=== PATIENT | male | born 1945 | race Caucasian/White ===

== ENCOUNTER 2016-06-05 04:40 | Observation (INO) ==
[2016-06-05] MEDS ORDERED: Aspirin 81 MG TAB.CHEW PO ONE (04:43)
[2016-06-05 05:12] LABS: Basophils # 0.1 K/mcL (0.0-0.2); Basophils % 0.9 %; Eosinophils # 0.4 K/mcL (0.0-0.6); Eosinophils % 4.7 %; Hematocrit 42.2 % (37.5-50.1); Hemoglobin 14.3 g/dL (12.9-16.9); Immature Granulocytes % 0.3 % (0-4); Lymphocytes # 2.9 K/mcL (0.6-4.6); Lymphocytes % 38.4 %; Mean Corpuscular HGB Conc 33.9 g/dL (31.6-35.5); Mean Corpuscular Hemoglobin 31.4 pg (28.0-33.3); Mean Corpuscular Volume 92.7 fL (83.0-100.0); Mean Platelet Volume 9.4 fL (9.4-12.4); Monocytes # 0.7 K/mcL (0.0-1.3); Monocytes % 9.8 %; Neutrophils # 3.4 K/mcL (1.6-8.9); Platelet Count 398 K/mcL (140-400); Red Blood Count 4.55 M/mcL (4.19-5.50); Segmented Neutrophils % 45.9 %
--- NOTE | 2016-06-05 05:16 | Emergency Department Note ---
Disposition Clinical Impression: Chest pain Qualifiers: Chest pain type: unspecified Qualified Code(s): R07.9 - Chest pain, unspecified Disposition: Admitted As Inpatient Condition: Good Time of Disposition: 07:36 Chest Pain HPI - General Chief Complaint: ED Chest Pain Stated Complaint: chest pain Time Seen by Provider: 06/05/16 04:43 Source: patient, family Mode of arrival: ambulatory Limitations: no limitations Vital Signs Reviewed: Yes Nursing Notes Reviewed: Yes - History of Present Illness HPI Narrative: Patient presents emergency room for evaluation chest pain. Symptoms then present for over one year. Had a catheterization performed several years ago with no blockages. Patient denies any trauma or injury. No recent illnesses. Patient is a history of blood clots in lower extremities secondary to orthopedic surgery as well as persistent sitting at work. Patient is otherwise healthy. Denies fevers chills nausea vomiting diarrhea. Denies chest pain shortness of breath and aggravated changes prior to the events today. His chest pain today came on acutely in nature. He typically will get intermittent chest discomfort that usually goes SPONTANEOUSLY WITH THIS ONE HAS BEEN PERSISTENT SINCE ITS PRESENTATION. DENIES ANY OTHER RECENT TRAUMA INJURIES OR SYMPTOMS Pt complaint: chest pain Onset (ago): week(s) Duration: intermittent Onset: during rest Pain Location: substernal, left chest Severity: mild Severity scale (1-10): 5 Quality: aching Pain Radiation: LUE Improves with: nothing Worsens with: inspiration, palpation, movement - Related Data Home Medications Medication Instructions Recorded Confirmed Aspirin Enteric Coated [Aspirin EC] 81 mg PO DAILY 11/12/14 06/05/16 Gabapentin [Neurontin] 300 mg PO TID 11/12/14 06/05/16 Multivitamin [Multi-Day Vitamins] 1 tab PO DAILY 11/12/14 06/05/16 Simvastatin [Zocor] 20 mg PO DAILY 11/12/14 06/05/16 Terazosin [Hytrin] 10 mg PO DAILY 11/12/14 06/05/16 Metformin [Glucophage] 500 mg PO DAILY 06/05/16 06/05/16 Rivaroxaban [Xarelto] 20 mg PO DAILY 06/05/16 06/05/16 Allergies Allergy/AdvReac Type Severity Reaction Status Date / Time No Known Allergies Allergy Verified 06/05/16 14:52 All systems ED: reviewed and negative except as stated. Constitutional: Denies: fever, chills Cardiovascular: Reports: chest pain. Denies: palpitations, dyspnea on exertion , orthopnea Respiratory: Denies: cough, dyspnea, wheezes Gastrointestinal: Reports: abdominal pain, nausea. Denies: vomiting, diarrhea Genitourinary: Denies: urgency, dysuria Musculoskeletal: Denies: back pain, neck pain Integumentary: Denies: rash Chest Pain PMH - Past Medical History Medical history: Reports: cancer, coronary artery disease, DVT, hyperlipidemia Surgical history: Reports: cancer surgery, orthopedic, other Psychiatric history: Reports: no psych history - Social History Smoking Status: Never smoker Alcohol use: Reports: rarely Drug use: Reports: none Physical Exam - General Limitations: no limitations General appearance: alert, in no apparent distress - Neck Neck exam: Present: normal inspection, full ROM, trachea midline - Chest Chest inspection: Present: normal inspection, symmetric chest wall rise. Absent : tenderness - Respiratory Respiratory exam: Present: normal lung sounds bilaterally. Absent: respiratory distress, wheezes, accessory muscle use - Cardiovascular Cardiovascular exam: Present: regular rate, normal rhythm, normal heart sounds - Abdominal Exam Abdominal exam: Present: soft, Non-Tender, normal bowel sounds. Absent: tenderness, distention, guarding, rebound, rigidity, Stewart's sign, Rovsing's sign, tenderness at McBurney's Point - Extremities Exam Extremities exam: Present: normal inspection, full ROM, normal capillary refill. Absent: tenderness - Back Exam Back exam: Present: normal inspection, full ROM. Absent: tenderness - Neurological Exam Neurological exam: Present: alert, oriented X3 - Psychiatric Psychiatric exam: Present: normal affect, normal mood Course Course Narrative: Patient seen and examined the time of arrival. See history of present illness. Well-appearing 71-year-old male presents emergency room for evaluation of what appears to be a chronic medical condition. Patient has had these symptoms on and off for just over a year. Symptoms progressed and started Pletal of his other episodes. The last several days she has been progressively worsening with pain. Denies fevers chills nausea vomiting diarrhea. Denies chest pain shortness of breath headache or vision changes prior to today's events. Main complaint on presentation appears left-sided chest wall pain that is worse with deep inspiration and palpation. Denies trauma or injuries or rashes. Physical exam patient is in no acute distress head is atraumatic. Pupils are reactive to light. His lungs were clear to auscultation bilaterally with no acute signs of murmur infectious etiology. Heart is regular. Abdomen is soft nontender nondistended with no guarding or rigidity. No CVA tenderness bilaterally. Patient is in with her nondistressed cranial nerve II through XII are grossly intact. Patient is concerning for cardiac related source considering his had a previous stress test performed 2012 catheterization. Patient describes the symptoms as being similar event. He denies any change in similar character at this point. He says that the symptoms do remind him of his previous cardiac evaluation. EKG shows normal sinus rhythm and no other acute issues. Patient is resting comfortably in the bed. Aspirin given at this time. 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 Patient otherwise has no other acute pathology on examination. Lungs are clear heart is regular abdomen soft. Disposition pending workup and treatment course - Reevaluation(s) Reevaluation #1: Symptoms are a little bit better after the nitroglycerin. Patient's blood pressure got into the 90 systolic range. Fluids were ordered at that time. Patient denies any change in mentation this point. Patient is concerning for cardiac related systems to symptoms. Patient's symptoms have not present for several days to weeks but then worse over the last several hours. Does have a history of DVT and is on Xarelto clinical suspicion for pulmonary emboli is low. Patient has anterior chest pain is reproducible on exam. No other acute visible signs of trauma or injury. We will discuss admission process and other further definitive imaging studies as needed. Patient is stable and resting comfortably in the bed no distress at this time. Disposition pending treatment course. Pain medication or this time Time: 06:14 Reevaluation #2: Low clinical suspicion for pulmonary emboli based on patient's uses a relative at home as well as no acute signs of respiratory distress or change in vital signs. Discussed my concern with this chest wall discomfort and pain. Patient also agrees it is concerning to him and he does not feel comfortable going home with she has been evaluated. Patient had negative troponin at this time. Symptoms of been worse over the last day to 24 hours. Patient will be admitted the hospital for cardiac evaluation and possible definitive evaluation and management. Hospitalist patient this point for admission process to be completed. Disposition pending admission process patient has had complete resolution of the symptoms with pain medication this time. Time: 06:45 Reevaluation #3: Patient discussed with the hospitalist Dr. Valle. We reviewed the patient's presentation symptoms of medical history. Patient afebrile hospital for cardiac evaluation. Discussed the atypical presentation of the chest wall pain with normal EKG and troponin. She understands and is comfortable with this plan. Patient will be brought in for definitive evaluation and management. Otherwise no other acute issues this time patient stable to to moderate in emergency room until admission process is completed Time: 07:36 Vital Signs Temperature 98.2 F 06/05/16 04:43 Pulse Rate 64 06/05/16 04:43 Respiratory Rate 18 06/05/16 04:43 Blood Pressure 112/69 06/05/16 04:43 O2 Sat by Pulse Oximetry 98 06/05/16 04:43 Temperature 97.8 F 06/05/16 18:51 Pulse Rate 86 06/05/16 18:51 Respiratory Rate 19 06/05/16 18:51 Blood Pressure 136/75 06/05/16 18:51 O2 Sat by Pulse Oximetry 92 06/05/16 18:51 Oxygen Delivery Oxygen Delivery Room Air Chest Pain - MDM Narrative Medical decision making narrative: Chest pain - Medical Records Medical records reviewed: Yes I reviewed the patient's medical records. - Lab Data Lab results reviewed: Yes I reviewed the patient's lab results. Result diagrams: 06/05/16 04:45 06/05/16 04:45 Lab Results 06/05/16 06/05/16 06/05/16 Range/Units 04:45 04:45 04:45 WBC 7.5 (4.3-11.1) K/mcL RBC 4.55 (4.19-5.50) M/mcL Hgb 14.3 (12.9-16.9) g/dL Hct 42.2 (37.5-50.1) % MCV 92.7 (83.0-100.0) fL MCH 31.4 (28.0-33.3) pg MCHC 33.9 (31.6-35.5) g/dL RDW 13.0 (11.5-14.5) % Plt Count 398 (140-400) K/mcL MPV 9.4 (9.4-12.4) fL Immature Gran % 0.3 (0-4) % Seg Neutrophils % 45.9 % Lymphocytes % 38.4 % Monocytes % 9.8 % Eosinophils % 4.7 % Basophils % 0.9 % Neutrophils # 3.4 (1.6-8.9) K/mcL Lymphocytes # 2.9 (0.6-4.6) K/mcL Monocytes # 0.7 (0.0-1.3) K/mcL Eosinophils # 0.4 (0.0-0.6) K/mcL Basophils # 0.1 (0.0-0.2) K/mcL PT 13.5 H (9.4-12.1) Seconds INR 1.2 APTT 36.1 H (26.0-36.0) Seconds Sodium (136-145) mEq/L Potassium (3.5-4.5) mEq/L Chloride (98-109) mEq/L Carbon Dioxide (19-29) mEq/L BUN (8-26) mg/dL Creatinine (0.72-1.25) mg/dL Est GFR ( Amer) (> 60) Est GFR (Non-Af Amer) (> 60) BUN/Creatinine Ratio (6-26) Glucose (70-99) mg/dL Calculated Osmolality (280-300) Calcium (8.6-10.8) mg/dL Troponin I (0-0.03) ng/mL B-Natriuretic Peptide 52 (0-100) pg/mL 06/05/16 06/05/16 Range/Units 04:45 04:45 WBC (4.3-11.1) K/mcL RBC (4.19-5.50) M/mcL Hgb (12.9-16.9) g/dL Hct (37.5-50.1) % MCV (83.0-100.0) fL MCH (28.0-33.3) pg MCHC (31.6-35.5) g/dL RDW (11.5-14.5) % Plt Count (140-400) K/mcL MPV (9.4-12.4) fL Immature Gran % (0-4) % Seg Neutrophils % % Lymphocytes % % Monocytes % % Eosinophils % % Basophils % % Neutrophils # (1.6-8.9) K/mcL Lymphocytes # (0.6-4.6) K/mcL Monocytes # (0.0-1.3) K/mcL Eosinophils # (0.0-0.6) K/mcL Basophils # (0.0-0.2) K/mcL PT (9.4-12.1) Seconds INR APTT (26.0-36.0) Seconds Sodium 142 (136-145) mEq/L Potassium 4.0 (3.5-4.5) mEq/L Chloride 107 (98-109) mEq/L Carbon Dioxide 26 (19-29) mEq/L BUN 19 (8-26) mg/dL Creatinine 1.05 (0.72-1.25) mg/dL Est GFR ( Amer) > 60 (> 60) Est GFR (Non-Af Amer) > 60 (> 60) BUN/Creatinine Ratio 18 (6-26) Glucose 121 H (70-99) mg/dL Calculated Osmolality 298 (280-300) Calcium 9.8 (8.6-10.8) mg/dL Troponin I 0.00 (0-0.03) ng/mL B-Natriuretic Peptide (0-100) pg/mL - Radiology Data Radiology results reviewed: Yes I reviewed the patient's radiology results. - EKG Data EKG attestation: Yes I reviewed and interpreted this EKG. EKG shows normal: sinus rhythm, axis, intervals, QRS complexes, ST-T waves Rate: normal Rhythm: NSR Bradshaw/QRS: normal When compared to previous EKG there are: no significant changes Interpretation: no acute changes, unchanged when compared to prior tracing (date ) Heart Score - Score History: Moderately Suspicious EKG: Non Specific repolarisation Disturbance Age: Greater than 65 Risk Factors: 1-2 risk factors Troponin: Less than normal limit HEART Score Total: 5 Attestation Statement - Attestation Attestation: I, Can Hutton MD, personally performed a history and physical exam of the patient and discussed their management with the resident. I reviewed the resident's note and agree with the documented findings, medical decision making , and plan of care. 71-year-old male presents to the emergency department complaining of some left upper chest pain. He states he has had this pain off and on for more than a year. He had a heart catheter about a year ago. The pain sometimes radiates up into the left side of the neck. Some mild shortness of breath with the pain. No diaphoresis. No palpitations. On examination patient is a well-developed well-nourished well-appearing elderly male in no acute distress. He is alert and oriented 3. There is no cyanosis or diaphoresis. Chest is nontender to palpation. Breath sounds are clear and equal bilaterally. Heart regular rate and rhythm. Abdomen soft and nontender with normal bowel sounds. No pedal edema. No gross focal neurological deficits. No acute changes on EKG. Chest x-ray negative. Labs reviewed. The hospitalist, Dr. Valle, was consulted and accepted admission of the patient.
[2016-06-05 05:17] LABS: INR 1.2; Prothrombin Time 13.5 Seconds (9.4-12.1)
[2016-06-05 05:20] LABS: Activated Partial Thrombo Time 36.1 Seconds (26.0-36.0)
[2016-06-05] MEDS ORDERED: Nitroglycerin 0.4 MG TAB.SUBL SL PRN (05:20)
[2016-06-05 05:26] LABS: BUN/Creatinine Ratio 18 (6-26); Blood Urea Nitrogen 19 mg/dL (8-26); Calcium 9.8 mg/dL (8.6-10.8); Carbon Dioxide 26 mEq/L (19-29); Chloride 107 mEq/L (98-109); Glucose 121 mg/dL (70-99); Osmolality,Calculated 298 (280-300); Sodium 142 mEq/L (136-145); eGFR For African Americans > 60 (> 60); eGFR For Non-African Americans > 60 (> 60)
[2016-06-05] MEDS ORDERED: 0.9 % Sodium Chloride 1,000 ML ONE (05:55)
[2016-06-05] MEDS ORDERED: 0.9 % Sodium Chloride 1,000 ML IVC ONE (06:08)
[2016-06-05] MEDS ORDERED: Ondansetron 4 MG/2 ML VIAL IVP ONE (06:13)
[2016-06-05] MEDS ORDERED: *HR* Morphine 2 MG/ML SYRINGE IVP ONE (06:13)
--- NOTE | 2016-06-05 09:41 | Internal Med History&Physical ---
Date of Encounter: 06/06/16 Time of Encounter: 09:40 Assessment and Plan (1) Chest pain Status: Chronic Unclear etiology. Has on and off chest pain since last year, has been evaluated by Dr. Johns, stress test last year was negative for ischemia. LHC done in 2011 with no significant heart blockage. We will trend troponins 3, first troponin is negative, EKG shows no ischemic changes. Unclear if this is coming from the heart, may need to workup for other causes once ACS is ruled out. Qualifiers: Chest pain type: unspecified Qualified Code(s): R07.9 - Chest pain, unspecified (2) Diabetes Status: Chronic Qualifiers: Diabetes mellitus type: type 2 Diabetes mellitus complication status: without complication Diabetes mellitus longterm insulin use: without jig operator use Qualified Code(s): E11.9 - Type 2 diabetes mellitus without complications (3) Hyperlipidemia Status: Chronic Qualifiers: Hyperlipidemia type: unspecified Qualified Code(s): E78.5 - Hyperlipidemia , unspecified (4) Hypertension Status: Chronic Qualifiers: Hypertension type: essential hypertension Qualified Code(s): I10 - Essential (primary) hypertension (5) DVT (deep venous thrombosis) Status: Chronic he has recurrent DVT of rt. leg and has family h/o DVT. factr V leiden is negative will continue his xarelto, seen by oncology, he may need to take it for lifetime. Qualifiers: DVT location: lower extremity Affected thrombotic vein of extremity: popliteal Laterality: right Chronicity: chronic Qualified Code(s): I82.531 - Chronic embolism and thrombosis of right popliteal vein Internal Medicine - H&P: HPI Chief complaint: chest pain Admitted From: Home Plans for Post Hospital Care: Home History of present illness: Mr. Ramsey is a 71 year old male with medical history of DM, HTN and knee replacement surgery August 2014, DVT presneted with Symptoms of chest pain present for over one year. Had a catheterization performed [address] Johns which showed no severe blockages and did not require any stent placement. Patient was also evaluated last year for the same thing, had stress test done that was negative for ischemia. Patient reports that he has this midsternal left-sided chest pain on and off since last year. It is not exertional, there is no relieving or exacerbating factor. This time he says he started having this midsternal chest pain since last night which is worse than before. He was given nitroglycerin in the emergency room which he says helped somewhat. He reports his mild nausea but no vomiting. Denies any shortness of breath, cough or fever, no abdominal pain. Patient denies any trauma or injury. No recent illnesses. Patient is a history of blood clots in lower extremities secondary to orthopedic surgery as well as persistent sitting at work. Patient is otherwise healthy. His chest pain today came on acutely in nature. He typically will get intermittent chest discomfort that usually goes SPONTANEOUSLY WITH THIS ONE HAS BEEN PERSISTENT SINCE ITS PRESENTATION. DENIES ANY OTHER RECENT TRAUMA INJURIES OR SYMPTOMS Past Med Surg Social Fam HX - Past Medical History Medical history: cancer, coronary artery disease, DVT, hyperlipidemia Psychiatric history: no psych history - Past Surgical History Surgical History: cancer surgery, orthopedic, other - Social History Smoking Status: Never smoker Smokeless Tobacco Status: No Alcohol use: none Drug use: none - Family History Mother Living Status: Hx Family Cardiac Disorders: Yes (heart failure, DVT) Hx Family Endocrine Disorder: Yes (DM) Internal Medicine - H&P: Meds Aspirin Enteric Coated [Aspirin EC] 81 mg PO DAILY 11/12/14 [History] Gabapentin [Neurontin] 300 mg PO TID 11/12/14 [History] Multivitamin [Multi-Day Vitamins] 1 tab PO DAILY 11/12/14 [History] Simvastatin [Zocor] 20 mg PO DAILY 11/12/14 [History] Terazosin [Hytrin] 10 mg PO DAILY 11/12/14 [History] Metformin [Glucophage] 500 mg PO DAILY 06/05/16 [History] Rivaroxaban [Xarelto] 20 mg PO DAILY 06/05/16 [History] Omeprazole [PriLOSEC] 20 mg PO DAILY #30 capsule. 06/06/16 [Rx] Rivaroxaban [Xarelto] 20 mg PO 1700 tablet 06/06/16 [Rx] Allergies No Known Allergies Allergy (Verified 06/05/16 14:52) All Systems PM: A 10-system review of systems was performed and is negative for pertinent findings except as documented above in the HPI. - Constitutional Vitals: Temp Pulse Resp BP Pulse Ox 97.7 F 64 16 149/80 96 06/05/16 08:40 06/05/16 08:40 06/05/16 08:40 06/05/16 08:40 06/05/16 08:57 General appearance: Present: A&O X 3, no acute distress Exam: Neck supple. Chest bilateral clear, no added sounds. CVS S1-S2, no murmurs rubs or gallops. Abdomen soft, nontender, bowel sounds are present. Extremities no edema. Neuro alert awake, no focal neurological deficits. Internal Med - H&P Results - Labs CBC & Chem 7: 06/06/16 02:08 06/06/16 02:08
[2016-06-05] MEDS ORDERED: Naloxone 0.4 MG/ML INJ IVP PRN (09:56)
[2016-06-05] MEDS: Gabapentin 300 MG CAPSULE PO PRN (16:08)
[2016-06-05] MEDS ORDERED: *HR* Rivaroxaban 10 MG TABLET PO SCH (17:00)
[2016-06-06] MEDS ORDERED: *HR* Morphine 2 MG/ML SYRINGE IVP PRN (01:24)
[2016-06-06 02:58] LABS: Basophils # 0.1 K/mcL (0.0-0.2); Basophils % 0.9 %; Eosinophils # 0.3 K/mcL (0.0-0.6); Eosinophils % 4.5 %; Hematocrit 38.1 % (37.5-50.1); Hemoglobin 13.1 g/dL (12.9-16.9); Immature Granulocytes % 0.3 % (0-4); Lymphocytes # 1.9 K/mcL (0.6-4.6); Lymphocytes % 24.9 %; Mean Corpuscular HGB Conc 34.4 g/dL (31.6-35.5); Mean Corpuscular Hemoglobin 32.5 pg (28.0-33.3); Mean Corpuscular Volume 94.5 fL (83.0-100.0); Mean Platelet Volume 9.5 fL (9.4-12.4); Monocytes # 0.8 K/mcL (0.0-1.3); Monocytes % 10.5 %; Neutrophils # 4.4 K/mcL (1.6-8.9); Platelet Count 363 K/mcL (140-400); Red Blood Count 4.03 M/mcL (4.19-5.50); Red Cell Distribution Width 12.9 % (11.5-14.5); Segmented Neutrophils % 58.9 %
[2016-06-06 03:09] LABS: BUN/Creatinine Ratio 17 (6-26); Blood Urea Nitrogen 17 mg/dL (8-26); Calcium 9.1 mg/dL (8.6-10.8); Carbon Dioxide 29 mEq/L (19-29); Chloride 105 mEq/L (98-109); Chol/HDL Ratio 3.3 (0-4.9); Cholesterol 101 mg/dL (< 200); Glucose 125 mg/dL (70-99); HDL Cholesterol 31 mg/dL (40-59); LDL Cholesterol,Calculated 47 mg/dL (0-99); Osmolality,Calculated 291 (280-300); Phosphorous 3.5 mg/dL (2.3-4.7); Potassium 4.2 mEq/L (3.5-4.5); Sodium 139 mEq/L (136-145); Triglycerides 115 mg/dL (< 150); eGFR For African Americans > 60 (> 60); eGFR For Non-African Americans > 60 (> 60)
[2016-06-06] MEDS ORDERED: Regadenoson 0.4 MG/5 ML SYRINGE IVP ONE (08:59)
[2016-06-06] MEDS ORDERED: Aspirin Enteric Coated 81 MG Tablet PO SCH (09:00)
--- NOTE | 2016-06-06 11:19 | Nuclear Medicine Stress Report ---
Regadenoson Nuclear Stress Name: Willie Ramsey Date of Study: 06/06/2016 Date: 1945 Ht: 72.0 in Medical Record#: [id number] Age: 71 Wt: 206.0 lb Gender: Male Order #: [id number] Location: [facility] IP Room: [facility] Supervising Provider: Corry Gilliam CNP Reading Physician: Alberto Patel MD, [facility] Ordering Physician: Laura Alonso CNP Primary Care Physician: Cristian Franco MD Stress Technologist: Ray Ernandez, SHIPPING INSPECTOR, CCT Varnishing Unit Operator: James Collins Indications: Chest Pain Impression: Perfusion imaging was negative for ischemia or infarct. Pharmacologic ECG was non diagnostic for ischemia. Normal hemodynamic response. Patient had no chest pain with stress. No arrhythmias noted with stress. Gated EF = >70%. The LV is not dilated. There is no evidence of TID. No high risk findings identified History: Diabetes Hypercholesteremia Stress Test Summary: Stress Test Type: Pharmacologic Regadenoson 0.4mg/5ml given IV Baseline Information: Initial Heart Rate: 64 Blood Pressure: 128/70 Stress Information: Stress Time: 4 min 00 sec Test Terminated Due to (primary): Completed Protocol Maximum Blood Pressure: 118/70 Maximum Heart Rate: 91 Percent Maximum Heart Rate Achieved: 61 Double Product: 10,738 METS Reached: 1 Symptoms: Nausea, Lightheadness Nuclear Summary: SPECT myocardial perfusion imaging using Tc99m Sestamibi given intravenously was performed at rest and following cardiac stress testing. The resting images were obtained following initial dose of 11.7 mCi. Following stress an additional dose of 32.2 mCi was given at peak exercise or 30 seconds post regadenoson infusion. Medication Given: Time Medication Dose Units Route Findings: Stress Note * Resting ECG demonstrated normal sinus rhythm. * No baseline arrhythmias were noted. * Pharmacologic stress ECG is non diagnostic for ischemia due to failure to reach target heartrate. * No chest pain or arrhythmias during stress. Study Quality * Study quality is good. Gated EF > 70% * Gated EF > 70%. NORMALS * Normal wall motion. * Normal segmental perfusion in stress. * Normal Segmental Perfusion in rest. TID * No evidence of transient ischemic dilatation. Left Ventricle * The left ventricle is not dilated. Updated by Alberto Patel MD, FACC on 06/06/2016 11:13:27 AM electronically signed on 06/06/2016 11:15:06 AM with status of Final
[2016-06-06 11:33] VITALS: BP 129/76
[2016-06-06] MEDS: Gabapentin 300 MG CAPSULE PO PRN (12:43)
--- NOTE | 2016-06-06 13:03 | Discharge Summary ---
Date of Encounter: 06/06/16 Time of Encounter: 11:00 - Discharge Diagnosis (1) Chest pain Priority: Primary Status: Chronic Comments: Patient reports onset of chest pain one year ago. He had an echo and a stress test at that time which were negative. The chest pain never resolved. He basically describes 2 different patterns and locations of chest pain over the last year the most frequent is a midsternal achy, intermittent chest pain that he does not have every day. He says nothing makes it better and nothing makes it worse. It is unpredictable and varies in duration. There is no radiation and no associated symptoms such as nausea, vomiting, shortness of breath, or diaphoresis. He presented to the emergency department at about 4 AM yesterday morning for this midsternal chest pain that actually began at about 1900 the night before. He said that it was constant. And it was relieved with morphine in the emergency department. He also describes another chest pain that is not as frequent, but is different. It begins in mid left chest basically behind left breast and radiates almost over to sternum. Again, this is not changed with movement or medication or deep breath. He says it is infrequent and intermittent and sharp. Patient had echocardiogram today that was negative. Patient's lungs are clear, he is pain-free during the exam and states he has not had any chest pain since early this morning prior to stress test, pain is not reproducible to palpation. Today's stress test was negative for ischemia or infarct. No arrhythmias noted. Gated EF is greater than 70%. The LV is not dilated, no evidence of TID ,no high-risk findings identified Qualifiers: Chest pain type: unspecified Qualified Code(s): R07.9 - Chest pain, unspecified (2) DVT (deep venous thrombosis) Priority: Secondary Status: Chronic Comments: Patient has a history of DVT. Recurrent right leg, family history of same. He is negative for factor V. He will continue his Xarelto and follows with heme/ onc. Qualifiers: DVT location: lower extremity Affected thrombotic vein of extremity: popliteal Laterality: right Chronicity: chronic Qualified Code(s): I82.531 - Chronic embolism and thrombosis of right popliteal vein (3) Diabetes Priority: Secondary Status: Chronic Comments: Chronic. Continue home regimen. Qualifiers: Diabetes mellitus type: type 2 Diabetes mellitus complication status: without complication Diabetes mellitus fci insulin use: without termite control servicer use Qualified Code(s): E11.9 - Type 2 diabetes mellitus without complications (4) Hypertension Priority: Secondary Status: Chronic Comments: Chronic. Continue home medication. Qualifiers: Hypertension type: essential hypertension Qualified Code(s): I10 - Essential (primary) hypertension (5) Hyperlipidemia Priority: Secondary Status: Chronic Comments: Chronic. Lipid panel within normal limits. Continue home medication. Qualifiers: Hyperlipidemia type: unspecified Qualified Code(s): E78.5 - Hyperlipidemia , unspecified (6) GERD (gastroesophageal reflux disease) Priority: Secondary Status: Chronic Comments: Some of patient's chest pain suspicious for reflux disease. Patient states that he knows that he cannot eat late at night or he will have heartburn symptoms. He does relate that sometimes his chest pain has been relieved with Tums. He has never been worked up for GERD and has never had an EGD. I discussed diet modifications and terminating omeprazole 20 mg by mouth daily to see if it helps with his symptoms. He will follow-up with his primary care physician after the holiday. He has a hernia repair scheduled for June 21 and preadmission testing tomorrow. He will follow up with primary care between the 2 dates. Qualifiers: Esophagitis presence: esophagitis presence not specified Qualified Code(s) : K21.9 - Gastro-esophageal reflux disease without esophagitis - Discharge Medications Prescriptions: Omeprazole [PriLOSEC] 20 mg PO DAILY #30 capsule.dr Fregoso Medications: Aspirin Enteric Coated [Aspirin EC] 81 mg PO DAILY 11/12/14 [History] Gabapentin [Neurontin] 300 mg PO TID 11/12/14 [History] Multivitamin [Multi-Day Vitamins] 1 tab PO DAILY 11/12/14 [History] Simvastatin [Zocor] 20 mg PO DAILY 11/12/14 [History] Terazosin [Hytrin] 10 mg PO DAILY 11/12/14 [History] Metformin [Glucophage] 500 mg PO DAILY 06/05/16 [History] Rivaroxaban [Xarelto] 20 mg PO DAILY 06/05/16 [History] Omeprazole [PriLOSEC] 20 mg PO DAILY #30 capsule. 06/06/16 [Rx] Rivaroxaban [Xarelto] 20 mg PO 1700 tablet 06/06/16 [Rx] Allergies/Adverse Reactions: Allergies No Known Allergies Allergy (Verified 06/05/16 14:52) Procedures/tests Complete & Pending: Procedures Performed prior 72 hours Category Date Time Status NM narinder perf SPECT multi [NM] Routine Exams 06/06/16 07:20 Taken SP pharm nuclear stress Routine Y 06/06/16 07:19 Completed Date of admission: 06/05/16 07:49 Primary care physician: Cristian Franco MD Discharging clinician: Laura Alonso Anticipated date of discharge: 06/06/16 - Patient Status Disposition: Home, Self-Care Functional capacity at discharge: independent ambulation Overall status at discharge: patient is back to baseline - Discharge Instructions Follow Up With: Cristian Franco MD [Primary Care Provider] - Additional Instructions: Start Omeprazole tomorrow. Follow up with your PCP as scheduled. Go to PAT tomorrow as scheduled. Return to the ED as needed for any other problems or concerns or if your condition changes. - Diet and Activity Activity: resume usual activities as tolerated Diet: advance to your usual diet Interval History: Patient reports approximately one year history of 2 different locations and types of chest pain. The most frequent is midsternal/epigastric without radiation, n/v, diaphoresis, or SOB. He does not have chest pain every day, and the duration of chest pain varies. With this chest pain nothing makes it worse and nothing makes it better. It is unpredictable. Patient also describes another chest pain that begins in left mid chest with radiation almost to sternum. He describes a soreness sharp and this is the chest pain that brought him to the emergency department 2 nights ago. This also is unpredictable and there is no radiation, nausea, vomiting, shortness of breath, or diaphoresis. Patient had a stress echo last year in April 2015 that showed LV EF 60% with normal systolic function negative for ischemia. Stress test today shows perfusion imaging negative for ischemia or infarct, gated EF is greater than 70%, LV is not dilated, no high risk findings identified. Hospital course: Mr. Ramsey is a 71 year old male - Time Spent with Patient Total time spent providing and/or coordinating discharge services: Less than 30 minutes - Constitutional Vitals: Temp Pulse Resp BP Pulse Ox 98.2 F 66 16 129/76 95 06/06/16 11:27 06/06/16 11:27 06/06/16 11:27 06/06/16 11:27 06/06/16 11:27 General appearance: Present: A&O X 3, no acute distress - Head Head exam: Present: normal inspection - Neck Neck exam general surgery: Present: normal inspection. Absent: lymphadenopathy , tenderness - Respiratory Respiratory exam: Present: CTAB. Absent: respiratory distress, rhonchi, stridor , wheezes - Cardiovascular Cardiovascular exam: Present: RRR, +S1, +S2. Absent: diastolic murmur, systolic murmur - GI/Abdominal GI/Abdominal exam: Present: normal bowel sounds, soft. Absent: hepatomegaly, tenderness - Extremities Exam Extremities exam: Present: normal inspection, warm, radial pulses palpable and symetrical. Absent: pedal edema, tenderness - Neurological Exam Neurological exam: Present: abnormal gait, oriented X3. Absent: no focal deficits, facial droop, speech deficit
--- NOTE | 2016-06-07 09:03 | Electrocardiograph Report ---
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
== END 2016-06-06 15:06 | disposition home or self-care (01) ==
LOC: EMEROO 04:40 → 3BNU 04:40
PROVIDERS: ADMIT Internal Medicine Endocrinology, Diabetes & Metabolism; ATTEND Registered Nurse

== ENCOUNTER 2016-06-09 05:38 | Observation (INO) ==
--- NOTE | 2016-06-09 05:56 | Emergency Department Note ---
START Narrative - START START: presents to the emergency department coming in by EMS squad. He states that he was in the hospital over the weekend for chest pain and workup was also had a chemical stress test which was normal on Tuesday and this week. Was discharged to home on that day. States that he has not felt extremely well over the week, with vague complaints of mid back pain some left shoulder pain left upper neck pain. States that he awoke with pain in the neck and the left shoulder this morning had some nausea no vomiting no diaphoresis. His thought he may be having a stroke, at this time he has no numbness tingling has been alert and oriented answering all questions appropriately. No headache at this time. States that he did not take any medication at home. Report to Armani Boudreaux PA-C
[2016-06-09 06:32] LABS: Basophils # 0.1 K/mcL (0.0-0.2); Basophils % 1.1 %; Eosinophils # 0.3 K/mcL (0.0-0.6); Eosinophils % 4.1 %; Hematocrit 41.5 % (37.5-50.1); Hemoglobin 14.3 g/dL (12.9-16.9); Immature Granulocytes % 0.3 % (0-4); Lymphocytes # 1.8 K/mcL (0.6-4.6); Lymphocytes % 24.9 %; Mean Corpuscular HGB Conc 34.5 g/dL (31.6-35.5); Mean Corpuscular Hemoglobin 31.5 pg (28.0-33.3); Mean Corpuscular Volume 91.4 fL (83.0-100.0); Monocytes # 0.7 K/mcL (0.0-1.3); Monocytes % 9.6 %; Neutrophils # 4.3 K/mcL (1.6-8.9); Platelet Count 386 K/mcL (140-400); Red Blood Count 4.54 M/mcL (4.19-5.50); Red Cell Distribution Width 12.8 % (11.5-14.5)
[2016-06-09 06:39] LABS: INR 1.3; Prothrombin Time 14.5 Seconds (9.4-12.1)
[2016-06-09 06:42] LABS: Activated Partial Thrombo Time 26.6 Seconds (26.0-36.0)
[2016-06-09 06:46] LABS: BUN/Creatinine Ratio 21 (6-26); Blood Urea Nitrogen 19 mg/dL (8-26); Calcium 9.4 mg/dL (8.6-10.8); Carbon Dioxide 26 mEq/L (19-29); Chloride 107 mEq/L (98-109); Glucose 130 mg/dL (70-99); Osmolality,Calculated 296 (280-300); Sodium 141 mEq/L (136-145); eGFR For African Americans > 60 (> 60); eGFR For Non-African Americans > 60 (> 60)
[2016-06-09] MEDS ORDERED: *HR* Morphine 2 MG/ML SYRINGE IV ONE ×2 (06:54→09:50)
[2016-06-09] MEDS ORDERED: 0.9 % Sodium Chloride 500 ML IV.SOLN IV ONE (06:54)
[2016-06-09] MEDS ORDERED: Aspirin 81 MG TAB.CHEW PO ONE (06:54)
[2016-06-09] MEDS ORDERED: Ondansetron 4 MG/2 ML VIAL IVP ONE (06:55)
--- NOTE | 2016-06-09 07:01 | Emergency Department Note ---
Disposition Clinical Impression: Neck pain on left side Chest pain Qualifiers: Chest pain type: other chest pain Qualified Code(s): R07.89 - Other chest pain ; R07.8 - Other chest pain Disposition: Admitted As Inpatient Condition: Good Referrals: Cristian Franco MD [Primary Care Provider] - Forms: ED Satisfaction Letter General Adult HPI - General Chief complaint: ED Neuro Symptoms/Deficit Stated complaint: neck pain Time Seen by Provider: 06/09/16 05:48 Source: patient, family, EMS Mode of arrival: EMS Limitations: no limitations Nursing Notes Reviewed: Yes Vital Signs Reviewed: Yes - History of Present Illness Pt Subjective Complaint: left sided chest and neck pain Onset (ago): hour(s) (about 4AM; but did not feel well all evening) Location: face, neck, chest Pain Scale: 7 Quality: aching, dull Consistency: constant, Improving ("Down to a three now; was at a 9)) Improves with: nothing Worsens with: nothing Associated symptoms: Reports: chest pain, diaphoresis. Denies: denies other symptoms, confusion, cough, fever/chills, headaches, loss of appetite, malaise, nausea/vomiting, seizure, shortness of breath, syncope, weakness, other Treatments Prior to Arrival: none - Related Data Home Medications Medication Instructions Recorded Confirmed Aspirin Enteric Coated [Aspirin EC] 81 mg PO DAILY 11/12/14 06/05/16 Gabapentin [Neurontin] 300 mg PO TID 11/12/14 06/05/16 Multivitamin [Multi-Day Vitamins] 1 tab PO DAILY 11/12/14 06/05/16 Simvastatin [Zocor] 20 mg PO DAILY 11/12/14 06/05/16 Terazosin [Hytrin] 10 mg PO DAILY 11/12/14 06/05/16 Metformin [Glucophage] 500 mg PO DAILY 06/05/16 06/05/16 Rivaroxaban [Xarelto] 20 mg PO DAILY 06/05/16 06/05/16 Previous Rx's Medication Instructions Recorded Omeprazole [PriLOSEC] 20 mg PO DAILY #30 capsule. 06/06/16 Rivaroxaban [Xarelto] 20 mg PO 1700 tablet 06/06/16 Allergies Allergy/AdvReac Type Severity Reaction Status Date / Time No Known Allergies Allergy Verified 06/05/16 14:52 All systems ED: reviewed and negative except as stated. Constitutional: Denies: fever, chills, weakness, weight change Eyes: Denies: eye pain, eye discharge ENT ED: Denies: throat pain, congestion, dysphagia Cardiovascular: Reports: chest pain. Denies: palpitations Respiratory: Denies: cough, dyspnea, wheezes Gastrointestinal: Denies: abdominal pain, nausea, vomiting, diarrhea Genitourinary: Denies: urgency, dysuria, frequency Musculoskeletal: Reports: neck pain. Denies: back pain, joint swelling, arthralgia Integumentary: Denies: rash, abrasion, lesions Neurological: Denies: headache, weakness, numbness, paresthesias, confusion, abnormal gait, vertigo Psychiatric: Denies: anxiety Endocrine: Denies: fatigue Hematological/Lymphatic: Denies: easy bleeding, easy bruising, lymphadenopathy Allergic/Immunologic: Denies: facial swelling, urticaria, itchy eyes Past Medical History - Past Medical History Attestation: Yes The following information was validated with the patient. Source: patient Medical history: Reports: cancer, coronary artery disease, DVT, hyperlipidemia Surgical history: Reports: cancer surgery, orthopedic, other Psychiatric history: Reports: no psych history - Social History Smoking Status: Never smoker Smokeless Tobacco Status: No Alcohol use: Reports: none Drug use: Reports: none Physical Exam - General Limitations: no limitations General appearance: alert, in no apparent distress - Head Head exam: atraumatic, normocephalic, normal inspection - Eye Eye exam: Present: normal appearance, PERRL, EOMI. Absent: scleral icterus, conjunctival injection, nystagmus, miosis, mydriasis, periorbital swelling, periorbital tenderness - ENT ENT exam: normal exam, normal oropharynx, mucous membranes moist - Neck Neck exam: Present: normal inspection, full ROM, trachea midline. Absent: tenderness, meningismus, lymphadenopathy, thyromegaly - Expanded Neck Exam Neck exam focused ED: Absent: midline tenderness, paraspinal tenderness, tenderness (other), tracheal deviation, anterior neck swelling, thyroid enlargement, carotid bruit - Chest Chest inspection: Present: normal inspection, symmetric chest wall rise. Absent : tenderness - Respiratory Respiratory exam: Present: normal lung sounds bilaterally. Absent: respiratory distress, wheezes, stridor, accessory muscle use, prolonged expiratory phase - Cardiovascular Cardiovascular exam: Present: regular rate, normal rhythm, normal heart sounds - Abdominal Exam Abdominal exam: Present: soft, Non-Tender. Absent: distention, guarding (lcohol :), rebound, mass, bruit, pulsatile mass - Extremities Exam Extremities exam: Present: normal inspection, full ROM, normal capillary refill. Absent: tenderness, pedal edema, joint swelling - Expanded Lower Extremity Exam Gait: observed and normal - Back Exam Back exam: Present: normal inspection, full ROM. Absent: tenderness - Neurological Exam Neurological exam: Present: alert, oriented X3, CN II-XII intact, normal gait, reflexes normal. Absent: motor sensory deficit - Psychiatric Psychiatric exam: Present: normal affect, normal mood - Skin Skin exam: Present: warm, dry, intact, normal color Course Course Narrative: Patient presents by squad with his for evaluation of left-sided neck pain. He states that he was admitted to this hospital this past Tuesday for evaluation of chest pain. He underwent a chemical stress test and was told that it was normal. Upon review of the results it shows that this was a perfusion study, an adequate test with no complications and no signs of ischemia. EF of 70%, no chest pain during the test. The patient followed up with his primary care provider, Dr. Franco on Tuesday. He states that he has " not felt right since leaving the hospital." Last night. He was having difficulty getting to sleep and could not get comfortable. He finally fell asleep and woke up a few hours later with significant pain in the left side of his neck. It extended into the left side of his face. He points to the jaw and the left occipital area. He also had some left upper chest pain that radiated into his left scapular area. He states, "I was laying in a pool of sweat". He denies nausea, vomiting, shortness of breath, dyspnea on exertion, palpitations, cough, hemoptysis, fever or chills. He denies numbness, tingling or weakness in the extremities, vertigo, syncope, dizziness, ataxia, vision changes, double vision, blurry vision flashes, floaters, photophobia, speech problems, or any other neurologic deficit. Upon arrival, the pain had decreased from a nine to a three. He denies history of similar pain. He notes that he was not given his dose of xarelto on Tuesday. He has been on this medication for several years since being diagnosed with a DVT. He states that he did have blood tests done to determine the cause of his DVT and does not recall being diagnosed with any blood dyscrasias. On exam, he is resting comfortably, appears mildly anxious. He has no tenderness to palpation of the neck and the pain is not reproducible with movement. EKG is normal and unchanged. Chest x-ray shows mild cardiomegaly, stable. No acute abnormality. Lab results are essentially normal except for mildly elevated glucose of 1: 30. His troponin is 0.00. CTA of the head and neck have been ordered as per recommendation of Dr. Lopez. She has seen the patient, reviewed the findings and we have discussed the case. She signed the patient out to Dr. Blanco at shift change. He also has seen the patient and reviewed the findings. We will discuss the CT results. Once available, and determine the best plan for this patient. Vital Signs Temperature 98.7 F 06/09/16 05:40 Pulse Rate 73 06/09/16 05:40 Respiratory Rate 18 06/09/16 05:40 Blood Pressure 138/83 06/09/16 05:40 O2 Sat by Pulse Oximetry 99 06/09/16 05:40 Temperature 98.7 F 06/09/16 05:40 Pulse Rate 68 06/09/16 09:58 Respiratory Rate 18 06/09/16 09:58 Blood Pressure 154/75 06/09/16 09:58 O2 Sat by Pulse Oximetry 98 06/09/16 09:58 Oxygen Delivery Oxygen Delivery Room Air Medical Decision Making - Medical Records Medical records reviewed: Yes I reviewed the patient's medical records. - Lab Data Lab results reviewed: Yes I reviewed the patient's lab results. Lab results narrative: Laboratory Last Values WBC 7.1 K/mcL (4.3-11.1) 06/09/16 06:25 RBC 4.54 M/mcL (4.19-5.50) 06/09/16 06:25 Hgb 14.3 g/dL (12.9-16.9) 06/09/16 06:25 Hct 41.5 % (37.5-50.1) 06/09/16 06:25 MCV 91.4 fL (83.0-100.0) 06/09/16 06:25 MCH 31.5 pg (28.0-33.3) 06/09/16 06:25 MCHC 34.5 g/dL (31.6-35.5) 06/09/16 06:25 RDW 12.8 % (11.5-14.5) 06/09/16 06:25 Plt Count 386 K/mcL (140-400) 06/09/16 06:25 MPV 9.0 fL (9.4-12.4) L 06/09/16 06:25 Immature Gran % 0.3 % (0-4) 06/09/16 06:25 Seg Neutrophils % 60.0 % 06/09/16 06:25 Lymphocytes % 24.9 % 06/09/16 06:25 Monocytes % 9.6 % 06/09/16 06:25 Eosinophils % 4.1 % 06/09/16 06:25 Basophils % 1.1 % 06/09/16 06:25 Neutrophils # 4.3 K/mcL (1.6-8.9) 06/09/16 06:25 Lymphocytes # 1.8 K/mcL (0.6-4.6) 06/09/16 06:25 Monocytes # 0.7 K/mcL (0.0-1.3) 06/09/16 06:25 Eosinophils # 0.3 K/mcL (0.0-0.6) 06/09/16 06:25 Basophils # 0.1 K/mcL (0.0-0.2) 06/09/16 06:25 PT 14.5 Seconds (9.4-12.1) H 06/09/16 06:25 INR 1.3 06/09/16 06:25 APTT 26.6 Seconds (26.0-36.0) 06/09/16 06:25 Sodium 141 mEq/L (136-145) 06/09/16 06:25 Potassium 4.0 mEq/L (3.5-4.5) 06/09/16 06:25 Chloride 107 mEq/L (98-109) 06/09/16 06:25 Carbon Dioxide 26 mEq/L (19-29) 06/09/16 06:25 BUN 19 mg/dL (8-26) 06/09/16 06:25 Creatinine 0.91 mg/dL (0.72-1.25) 06/09/16 06:25 Est GFR ( Amer) > 60 (> 60) 06/09/16 06:25 Est GFR (Non-Af Amer) > 60 (> 60) 06/09/16 06:25 BUN/Creatinine Ratio 21 (6-26) 06/09/16 06:25 Glucose 130 mg/dL (70-99) H 06/09/16 06:25 Calculated Osmolality 296 (280-300) 06/09/16 06:25 Calcium 9.4 mg/dL (8.6-10.8) 06/09/16 06:25 Troponin I 0.00 ng/mL (0-0.03) 06/09/16 06:25 Result diagrams: 06/09/16 06:25 06/09/16 06:25 Lab Results 06/09/16 06/09/16 06/09/16 Range/Units 06:25 06:25 06:25 WBC 7.1 (4.3-11.1) K/mcL RBC 4.54 (4.19-5.50) M/mcL Hgb 14.3 (12.9-16.9) g/dL Hct 41.5 (37.5-50.1) % MCV 91.4 (83.0-100.0) fL MCH 31.5 (28.0-33.3) pg MCHC 34.5 (31.6-35.5) g/dL RDW 12.8 (11.5-14.5) % Plt Count 386 (140-400) K/mcL MPV 9.0 L (9.4-12.4) fL Immature Gran % 0.3 (0-4) % Seg Neutrophils % 60.0 % Lymphocytes % 24.9 % Monocytes % 9.6 % Eosinophils % 4.1 % Basophils % 1.1 % Neutrophils # 4.3 (1.6-8.9) K/mcL Lymphocytes # 1.8 (0.6-4.6) K/mcL Monocytes # 0.7 (0.0-1.3) K/mcL Eosinophils # 0.3 (0.0-0.6) K/mcL Basophils # 0.1 (0.0-0.2) K/mcL PT 14.5 H (9.4-12.1) Seconds INR 1.3 APTT 26.6 (26.0-36.0) Seconds Sodium 141 (136-145) mEq/L Potassium 4.0 (3.5-4.5) mEq/L Chloride 107 (98-109) mEq/L Carbon Dioxide 26 (19-29) mEq/L BUN 19 (8-26) mg/dL Creatinine 0.91 (0.72-1.25) mg/dL Est GFR ( Amer) > 60 (> 60) Est GFR (Non-Af Amer) > 60 (> 60) BUN/Creatinine Ratio 21 (6-26) Glucose 130 H (70-99) mg/dL Calculated Osmolality 296 (280-300) Calcium 9.4 (8.6-10.8) mg/dL Troponin I (0-0.03) ng/mL 06/09/16 Range/Units 06:25 WBC (4.3-11.1) K/mcL RBC (4.19-5.50) M/mcL Hgb (12.9-16.9) g/dL Hct (37.5-50.1) % MCV (83.0-100.0) fL MCH (28.0-33.3) pg MCHC (31.6-35.5) g/dL RDW (11.5-14.5) % Plt Count (140-400) K/mcL MPV (9.4-12.4) fL Immature Gran % (0-4) % Seg Neutrophils % % Lymphocytes % % Monocytes % % Eosinophils % % Basophils % % Neutrophils # (1.6-8.9) K/mcL Lymphocytes # (0.6-4.6) K/mcL Monocytes # (0.0-1.3) K/mcL Eosinophils # (0.0-0.6) K/mcL Basophils # (0.0-0.2) K/mcL PT (9.4-12.1) Seconds INR APTT (26.0-36.0) Seconds Sodium (136-145) mEq/L Potassium (3.5-4.5) mEq/L Chloride (98-109) mEq/L Carbon Dioxide (19-29) mEq/L BUN (8-26) mg/dL Creatinine (0.72-1.25) mg/dL Est GFR ( Amer) (> 60) Est GFR (Non-Af Amer) (> 60) BUN/Creatinine Ratio (6-26) Glucose (70-99) mg/dL Calculated Osmolality (280-300) Calcium (8.6-10.8) mg/dL Troponin I 0.00 (0-0.03) ng/mL - Radiology Data Radiology results reviewed: Yes I reviewed the patient's radiology results. Chest X-Ray 06/09/16 06:05 IMPRESSION: 1. Stable mild enlargement of the cardiac silhouette. No superimposed acute pulmonary abnormality. D/ / David Blake MD / David Blake MD Interpreting Provider: David Blake MD Angiography CT 06/09/16 07:17 IMPRESSION: 1. Unremarkable CTA of the brain. No acute intracranial abnormality. 2. There is a 20% stenosis in the proximal left internal carotid artery. 3. Indeterminate nodule along the right paramidline of the isthmus measuring 2.1 cm. Follow-up thyroid ultrasound is recommended for further evaluation. 4. 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 D/ / 06/09/2016 09:55:29 Enrique Ca MD / mayito Interpreting Provider: Enrique Ca MD Neck CTA 06/09/16 07:17
--- NOTE | 2016-06-09 07:57 | Emergency Department Note ---
Disposition Clinical Impression: Chest pain, Neck pain on left side Disposition: Admitted As Inpatient Condition: Good Referrals: Cristian Franco MD [Primary Care Provider] - Forms: ED Satisfaction Letter General Adult HPI - General Chief complaint: ED Neuro Symptoms/Deficit Stated complaint: neck pain Time Seen by Provider: 06/09/16 05:48 Source: patient, EMS Limitations: no limitations Nursing Notes Reviewed: Yes Vital Signs Reviewed: Yes - History of Present Illness Pain Scale: 7 - Related Data Home Medications Medication Instructions Recorded Confirmed Aspirin Enteric Coated [Aspirin EC] 81 mg PO DAILY 11/12/14 06/05/16 Gabapentin [Neurontin] 300 mg PO TID 11/12/14 06/05/16 Multivitamin [Multi-Day Vitamins] 1 tab PO DAILY 11/12/14 06/05/16 Simvastatin [Zocor] 20 mg PO DAILY 11/12/14 06/05/16 Terazosin [Hytrin] 10 mg PO DAILY 11/12/14 06/05/16 Metformin [Glucophage] 500 mg PO DAILY 06/05/16 06/05/16 Rivaroxaban [Xarelto] 20 mg PO DAILY 06/05/16 06/05/16 Previous Rx's Medication Instructions Recorded Omeprazole [PriLOSEC] 20 mg PO DAILY #30 capsule. 06/06/16 Rivaroxaban [Xarelto] 20 mg PO 1700 tablet 06/06/16 Allergies Allergy/AdvReac Type Severity Reaction Status Date / Time No Known Allergies Allergy Verified 06/05/16 14:52 Past Medical History - Past Medical History Medical history: Reports: cancer, coronary artery disease, DVT, hyperlipidemia Surgical history: Reports: cancer surgery, orthopedic, other Psychiatric history: Reports: no psych history - Social History Smoking Status: Never smoker Smokeless Tobacco Status: No Alcohol use: Reports: none Drug use: Reports: none Physical Exam - General Limitations: no limitations General appearance: alert, in no apparent distress Course Vital Signs Temperature 98.7 F 06/09/16 05:40 Pulse Rate 73 06/09/16 05:40 Respiratory Rate 18 06/09/16 05:40 Blood Pressure 138/83 06/09/16 05:40 O2 Sat by Pulse Oximetry 99 06/09/16 05:40 Temperature 98.7 F 06/09/16 05:40 Pulse Rate 68 06/09/16 09:58 Respiratory Rate 18 06/09/16 09:58 Blood Pressure 154/75 06/09/16 09:58 O2 Sat by Pulse Oximetry 98 06/09/16 09:58 Oxygen Delivery Oxygen Delivery Room Air Medical Decision Making - MDM Narrative Medical decision making narrative: I examined this patient and my medical decision-making was reviewed with the LOGGING SPECIALIST/PA/Advanced Practice Nurse/Resident Physician. I agree with the documented findings, disposition and treatment plan as described except to the extent set forth below. Patient was a sign out from the evening ER physician Dr. Tiara Rosa, she had seen this patient along with Mallory Boudreaux. Patient's workup had been negative he been having some neck pains they elected to do a CTA to rule out carotid artery pathology. Patient stable at this time he is waiting on his study. His creatinine looks good. He is getting IV fluid hydration since he is getting IV contrast and once those results are back we will make a disposition. Patient's agreement with this plan. Chest X-Ray 06/09/16 06:05 IMPRESSION: 1. Stable mild enlargement of the cardiac silhouette. No superimposed acute pulmonary abnormality. D/ / David Blake MD / David Blake MD Interpreting Provider: David Blake MD Angiography CT 06/09/16 07:17 IMPRESSION: 1. Unremarkable CTA of the brain. No acute intracranial abnormality. 2. There is a 20% stenosis in the proximal left internal carotid artery. 3. Indeterminate nodule along the right paramidline of the isthmus measuring 2.1 cm. Follow-up thyroid ultrasound is recommended for further evaluation. 4. 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 D/ / 06/09/2016 09:55:29 Enrique Ca MD / mayito Interpreting Provider: Enrique Ca MD Neck CTA 06/09/16 07:17 IMPRESSION: 1. Unremarkable CTA of the brain. No acute intracranial abnormality. 2. There is a 20% stenosis in the proximal left internal carotid artery. 3. Indeterminate nodule along the right paramidline of the isthmus measuring 2.1 cm. Follow-up thyroid ultrasound is recommended for further evaluation. 4. 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 D/ / 06/09/2016 09:55:29 Enrique Ca MD / mayito Interpreting Provider: Enrique Ca MD 1015 hrs.: Subhash bring the patient into the hospital since he had the chest pain. Patient's in agreement with that plan. - Lab Data Result diagrams: 06/09/16 06:25 06/09/16 06:25 Lab Results 06/09/16 06/09/16 06/09/16 Range/Units 06:25 06:25 06:25 WBC 7.1 (4.3-11.1) K/mcL RBC 4.54 (4.19-5.50) M/mcL Hgb 14.3 (12.9-16.9) g/dL Hct 41.5 (37.5-50.1) % MCV 91.4 (83.0-100.0) fL MCH 31.5 (28.0-33.3) pg MCHC 34.5 (31.6-35.5) g/dL RDW 12.8 (11.5-14.5) % Plt Count 386 (140-400) K/mcL MPV 9.0 L (9.4-12.4) fL Immature Gran % 0.3 (0-4) % Seg Neutrophils % 60.0 % Lymphocytes % 24.9 % Monocytes % 9.6 % Eosinophils % 4.1 % Basophils % 1.1 % Neutrophils # 4.3 (1.6-8.9) K/mcL Lymphocytes # 1.8 (0.6-4.6) K/mcL Monocytes # 0.7 (0.0-1.3) K/mcL Eosinophils # 0.3 (0.0-0.6) K/mcL Basophils # 0.1 (0.0-0.2) K/mcL PT 14.5 H (9.4-12.1) Seconds INR 1.3 APTT 26.6 (26.0-36.0) Seconds Sodium 141 (136-145) mEq/L Potassium 4.0 (3.5-4.5) mEq/L Chloride 107 (98-109) mEq/L Carbon Dioxide 26 (19-29) mEq/L BUN 19 (8-26) mg/dL Creatinine 0.91 (0.72-1.25) mg/dL Est GFR ( Amer) > 60 (> 60) Est GFR (Non-Af Amer) > 60 (> 60) BUN/Creatinine Ratio 21 (6-26) Glucose 130 H (70-99) mg/dL Calculated Osmolality 296 (280-300) Calcium 9.4 (8.6-10.8) mg/dL Troponin I (0-0.03) ng/mL 06/09/16 Range/Units 06:25 WBC (4.3-11.1) K/mcL RBC (4.19-5.50) M/mcL Hgb (12.9-16.9) g/dL Hct (37.5-50.1) % MCV (83.0-100.0) fL MCH (28.0-33.3) pg MCHC (31.6-35.5) g/dL RDW (11.5-14.5) % Plt Count (140-400) K/mcL MPV (9.4-12.4) fL Immature Gran % (0-4) % Seg Neutrophils % % Lymphocytes % % Monocytes % % Eosinophils % % Basophils % % Neutrophils # (1.6-8.9) K/mcL Lymphocytes # (0.6-4.6) K/mcL Monocytes # (0.0-1.3) K/mcL Eosinophils # (0.0-0.6) K/mcL Basophils # (0.0-0.2) K/mcL PT (9.4-12.1) Seconds INR APTT (26.0-36.0) Seconds Sodium (136-145) mEq/L Potassium (3.5-4.5) mEq/L Chloride (98-109) mEq/L Carbon Dioxide (19-29) mEq/L BUN (8-26) mg/dL Creatinine (0.72-1.25) mg/dL Est GFR ( Amer) (> 60) Est GFR (Non-Af Amer) (> 60) BUN/Creatinine Ratio (6-26) Glucose (70-99) mg/dL Calculated Osmolality (280-300) Calcium (8.6-10.8) mg/dL Troponin I 0.00 (0-0.03) ng/mL
--- NOTE | 2016-06-09 13:02 | Internal Med History&Physical ---
Date of Encounter: 06/09/16 Time of Encounter: 12:00 Assessment and Plan (1) Neck pain on left side Current visit: Yes Status: Acute Assess: Patient has a known history of DVTs 2. Patient also has history of chest pain. Patient presents today with chief complaint of left-sided neck pain radiating to the back of his head and diaphoresis last night. Patient also reports left-sided numbness of the head and upper torso. CTA of head dated shows unremarkable changes to the brain. No acute intracranial abnormality. There is a 20% stenosis in the proximal left internal carotid artery. Patient reports no history of CO. Patient currently on daily aspirin and Xarelto. Plan: Cardiology consult ordered. Continuous cardiac monitoring 12-lead ECG Monitor vital signs Trending troponins D-dimer ordered BNP ordered ESR ordered Bilateral carotid Doppler ordered Continue aspirin and Xarelto DVT prophylaxis ordered consisting of antiembolic stockings Cardiac diet Anti-embolic stockings ordered DVT prophylaxis (2) Chest pain Current visit: Yes Status: Chronic Assess: Patient has a known history of DVTs 2. Patient also has history of chest pain. Patient presents today with chief complaint of left-sided neck pain radiating to the back of his head and diaphoresis last night. Patient also reports left-sided numbness of the head and upper torso. CTA of head dated shows unremarkable changes to the brain. No acute intracranial abnormality. There is a 20% stenosis in the proximal left internal carotid artery. Patient reports no history of CO. Patient currently on daily aspirin and Xarelto. Plan: Cardiology consult ordered. Continuous cardiac monitoring 12-lead ECG Monitor vital signs Trending troponins D-dimer ordered BNP ordered ESR ordered Bilateral carotid Doppler ordered Continue aspirin and Xarelto DVT prophylaxis ordered consisting of antiembolic stockings Cardiac diet Anti-embolic stockings ordered DVT prophylaxis Qualifiers: Chest pain type: other chest pain Qualified Code(s): R07.89 - Other chest pain; R07.8 - Other chest pain (3) DVT (deep venous thrombosis) Current visit: No Status: Chronic Assess: Patient has a known history of DVTs 2. Patient also has history of chest pain. Patient presents today with chief complaint of left-sided neck pain radiating to the back of his head and diaphoresis last night. Patient also reports left-sided numbness of the head and upper torso. CTA of head dated shows unremarkable changes to the brain. No acute intracranial abnormality. There is a 20% stenosis in the proximal left internal carotid artery. Patient reports no history of CO. Patient currently on daily aspirin and Xarelto. Plan: Cardiology consult ordered. Continuous cardiac monitoring Monitor vital signs Trending troponins D-dimer ordered BNP ordered ESR ordered Bilateral carotid Doppler ordered Continue aspirin and Xarelto DVT prophylaxis ordered consisting of antiembolic stockings Cardiac diet Anti-embolic stockings ordered DVT prophylaxis Qualifiers: DVT location: lower extremity Affected thrombotic vein of extremity: popliteal Laterality: right Chronicity: chronic Qualified Code(s): I82.531 - Chronic embolism and thrombosis of right popliteal vein (4) Diabetes Current visit: No Status: Chronic Assess: Patient reports history of DM controlled with oral hyperglycemics. Plan: Insulin correction dosing ordered Hypoglycemic protocol ordered Qualifiers: Diabetes mellitus type: type 2 Diabetes mellitus complication status: without complication Diabetes mellitus shelter insulin use: without shelter use Qualified Code(s): E11.9 - Type 2 diabetes mellitus without complications (5) GERD (gastroesophageal reflux disease) Current visit: No Status: Chronic Assess: Patient reports epigastric pain related to GERD. Plan: Omeprazole ordered PRN Zofran ordered PRN Qualifiers: Esophagitis presence: esophagitis presence not specified Qualified Code(s) : K21.9 - Gastro-esophageal reflux disease without esophagitis (6) Hyperlipidemia Current visit: No Status: Chronic Assess: Patient reports history of hyperlipidemia. Plan: Continue simvastatin Lipid panel ordered Qualifiers: Hyperlipidemia type: unspecified Qualified Code(s): E78.5 - Hyperlipidemia , unspecified (7) Hypertension Current visit: No Status: Chronic Assess: Patient reports history of hypertension. Plan: Continue terazosin for HTN and BPH Monitor vital signs while inpatient Cardiac diet Qualifiers: Hypertension type: essential hypertension Qualified Code(s): I10 - Essential (primary) hypertension (8) DVT prophylaxis Current visit: Yes Status: Acute Assess: Patient placed as inpatient status with history of DVTs x2. Plan: Continue aspirin therapy Continue Xarelto Anti-embolic stocking ordered Up ad isela Internal Medicine - H&P: HPI Admitted From: Emergency Dept Plans for Post Hospital Care: Home History of present illness: Mr. Ramsey is a 71 year old male who presents from the ED with chief complaint of left-sided neck pain that radiates up the back of his head. Patient states this began last night when he awoke diaphoretic. Patient states he had a feeling of numbness on the left side of his head last night. Patient has a history of chest pain with the last episode being last week when he was also admitted for left-sided chest pain. Patient also reports left-sided carotid pain over the past year. Patient has history of basal cell skin cancer, coronary artery disease, DVTs, hyperlipidemia, and diabetes. Patient reports he had a heart catheterization in 2011 related to chest pain, however no stents were placed. Patient reports he has an enlarged prostate. Patient states he had a colonoscopy performed in 2016 after fecal occult blood in stool. Several precancerous polyps removed. Patient reports 2 episodes of DVTs: First in 2006 while at work and second in 2014 following a broken right ankle. Patient admitted as inpatient with cardiology consult ordered. Past Med Surg Social Fam HX - Past Medical History Medical history: cancer (Basal cell skin cancer), coronary artery disease, DVT, hyperlipidemia Psychiatric history: no psych history - Past Surgical History Surgical History: cancer surgery, knee replacement (Right knee), orthopedic, other - Social History Smoking Status: Former smoker (Patient reports he smoked in his 20's. States < 1 /2 pack per day.) Packs per day: <1/2 Smokeless Tobacco Status: No Alcohol use: none Drug use: none Occupational status: retired Current living situation: With Family Activity Level: Independent ambulation Recent Out of Country Travel Within the Last 8 Weeks: No Exposure or Possible Exposure to Illness During Travel: No - Family History Mother Race: Family Member Ethnicity: Non- Living Status: Age at : 89 Cause of : Stroke Hx Family Cardiac Disorders: Yes (heart failure, DVT) Hx Family Cancer: Yes (Prostate & metastatic lung (father), Breast (2 sisters)) Hx Family Endocrine Disorder: Yes (DM) Father Race: Family Member Ethnicity: Non- Living Status: Age at : 84 (Metastatic cancer) Hx Family Cardiac Disorders: Yes (HD) Hx Family Cancer: Yes (Breast, metastatic lung ) Hx Family Endocrine Disorder: Yes Brother Race: Family Member Ethnicity: Non- Living Status: Still Living Hx Family Cardiac Disorders: Yes (HD, stent placement) Hx Family Cancer: Yes (Prostate & metastatic lung (father), Breast (2 sisters)) Hx Family Endocrine Disorder: Yes Sister Race: Family Member Ethnicity: Non- Living Status: Still Living Hx Family Cardiac Disorders: Yes (Brother) Hx Family Cancer: Yes (Breast (2 sisters), Prostate & metastatic lung (father)) Hx Family Endocrine Disorder: Yes Internal Medicine - H&P: Meds Aspirin Enteric Coated [Aspirin EC] 81 mg PO DAILY 11/12/14 [History] Gabapentin [Neurontin] 300 mg PO TID 11/12/14 [History] Multivitamin [Multi-Day Vitamins] 1 tab PO DAILY 11/12/14 [History] Simvastatin [Zocor] 20 mg PO DAILY 11/12/14 [History] Terazosin [Hytrin] 10 mg PO DAILY 11/12/14 [History] Metformin [Glucophage] 500 mg PO DAILY 06/05/16 [History] Rivaroxaban [Xarelto] 20 mg PO DAILY 06/05/16 [History] Omeprazole [PriLOSEC] 20 mg PO DAILY #30 capsule.dr 06/06/16 [Rx] Cholecalciferol (Vitamin D3) [Vitamin D] 1,000 unit PO DAILY 06/09/16 [History] Allergies No Known Allergies Allergy (Verified 06/05/16 14:52) All Systems PM: A 10-system review of systems was performed and is negative for pertinent findings except as documented above in the HPI. - Constitutional Constitutional: as per HPI, excessive sweating Additional comments: Patient reports extreme diaphoresis last night related to chest pain and neck pain which radiated up the left side of his neck and the back of his head. Patient reports sheets were wet with sweat. He denies fever or recent illness. - EENT Eyes: no change in vision, no discharge, no pain, no photophobia Ears: no ear discharge, no ear pain, no tinnitus Nose, mouth and throat: neck pain, post-nasal drip Additional comments: Patient reports having neck pain radiating from left shoulder up the neck to the back of his head since last night. He reports pain intensifies and wanes. Patient also reports drainage from sinuses which makes him constantly clear his throat. - Cardiovascular Cardiovascular ROS IM: chest pain, diaphoresis, lightheadedness, palpitations Additional comments: Patient reports chest pain from Tuesday that started at his left armpit and went across his left chest. Pain is now located on the left side of his neck radiating up the back of his head. He rates his pain at 5 when it was at its worst. Patient also reported feeling lightheaded and diaphoretic last night. He states that the left side of his head and chest "did not feel right and felt numb". He also reports having feelings of heart palpitations occasionally. - Respiratory Respiratory: as per HPI Additional comments: Patient reports having to constantly clear his throat due to drainage. He states he hasn't been diagnosed with seasonal allergies but this constant drainage may be due to this. 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 He is unaware of any exposure to asbestos or noxious agents. - Gastrointestinal Gastrointestinal: abdominal pain, constipation, nausea Additional comments: Patient states that he has epigastric pain. He reports that he was given a prescription for omeprazole during his admission last week. He also reports nausea during his chest and neck pain. Patient states he is always constipated and it may take 5-7 days to have a BM. States BMs are formed and borwn. Also reports he had a colonoscopy in 2016 after having fecal occult blood in stool. States several pre-cancerous polyps removed. - Genitourinary Genitourinary ROS male: urinary frequency, urinary hesitancy Additional comments: Mr. Ramsey states that he has an enlarged prostate which causes occasional urinary frequency and hesitation. Reports he may be up several times during the night to urinate. - Musculoskeletal Musculoskeletal ROS IM: as per HPI, neck pain, numbness Additional comments: Patient reports neck pain that radiates up left side of neck to back of head within the last 24 hours. He also reported a feeling of numbness on the left side of his head and chest. - Integumentary Integumentary IM: other, no rash, no unusual bruising Additional comments: Patient's skin is dry and intact with normal coloring. Patient reports being treated for basal cell skin cancer on his left arm in the past. He also states he has some areas on his face which need removed. - Neurological Neurological ROS: numbness, no confusion, no convulsions, no focal weakness, no tingling, no tremor(s) Additional comments: Patient reports a numbness on the left side of his head and chest last night which has resolved. - Psychiatric Psychiatric: as per HPI - Endocrine Endocrine IM: as per HPI - Hematologic/Lymphatic Hematologic/Lymphatic: no easy bruising - Allergic/Immunologic Allergic/Immunologic: as per HPI Additional comments: Mr. Ramsey reports having constant drainage down the back of his throat which causes him to clear his throat constantly. Denies cough or sputum production. States he may have undiagnosed seasonal allergies. - Constitutional Vitals: Temp Pulse Resp BP Pulse Ox 98.7 F 70 18 127/81 97 06/09/16 05:40 06/09/16 11:42 06/09/16 12:06 06/09/16 12:06 06/09/16 11:42 General appearance: Present: cooperative, A&O X 3, pleasant, no acute distress, answers questions appropriately - Head Head exam: Present: atraumatic, normal inspection, normocephalic - Eye Eye exam: Present: PERRL, conjuntiva pink, sclera anicteric Pupils: Present: PERRL - ENT ENT exam: Present: normal exam - Neck Neck exam general surgery: Present: normal inspection, supple, trachea midline Additional comments: Mr. Ramsey reports pain on the left side of his neck that radiates up the back of his head. No bruits noted bilaterally on auscultation. - Respiratory Respiratory exam: Present: wheezes Additional comments: Patient has inspiratory and expiratory wheezes present bilaterally. This is especially notable on the left upper and lower lobes. More mild in the right lung in all lobes. - Cardiovascular Cardiovascular exam: Present: RRR, +S1, +S2. Absent: diastolic murmur, gallop, rubs, systolic murmur Additional comments: Patient reports feeling fluttering in his chest occasionally, but no atrial fibrillation or murmurs noted on auscultation. - GI/Abdominal GI/Abdominal exam: Present: hernia, hypoactive bowel sounds, soft, tenderness Additional comments: Patient has hypoactive bowel sounds with auscultation. Epigastric tenderness noted on exam along with lower left hernia tenderness. Abdomen soft upon exam. No guarding, rigidity, or distention. - Rectal Rectal exam: Present: deferred - Additional comments: exam deferred. - Extremities Exam Extremities exam: Present: normal capillary refill, normal inspection, radial pulses palpable and symetrical - Back Exam Back exam: Present: normal inspection - Neurological Exam Neurological exam: Present: alert, oriented X3, reflexes normal, no focal deficits, strengths equal and symetr throughout - Psychiatric Psychiatric exam: Present: normal affect, normal mood - Skin Skin exam: Present: dry, intact, normal color Internal Med - H&P Results - Labs CBC & Chem 7: 06/09/16 06:25 06/09/16 14:29 - EKG Data EKG shows normal: sinus rhythm - EKG Data Prior EKG available for review: yes When compared to previous EKG: there is no significant change Interpretation IM: normal EKG - Diagnostic Studies Chest x-ray Additional comments: 1 View CXR dated 06/09/16 showscardiac silhouette mildly enlarged. No focal consolidation, pleural effusion, or pneumothorax. No evidence of pulmonary edema. Moderate right acromioclavicular degenerative changes. No superimposed acute pulmonary abnormality. CT scan - head Additional comments: CTA of head/brain/neck dated 06/09/16 shows: 1. BRAIN VENTRICLES: Cerebral and cerebellar parenchyma demonstrate normal volume. No areas of acute hemorrhage, mass, or midline shirt. No abnormal extra- axial fluid collections. Ventricles are normal size. 2. ORBITS: Orbits are unremarkable. 3. SINUSES: Mucosal thickening in the left maxillary sinus. There is a right maxillary mucous retention cyst. Mastoid air cells are clear. 4. SOFT TISSUES/SKULL: No appreciable soft tissue swelling in soft tissues/ skull. Calvarium is intact. 5. AORTIC ARCH/GREAT VESSELS: Normal branch pattern of the aortic arch. Innominate and subclavian arteries are patent with no evidence of flow-limiting stenosis. 6. CAROTID ARTERIES: Right common carotid artery is normal in caliber. Fibrocalcific plaque is noted in the proximal right internal carotid artery without evidence of a flow-limiting stenosis using NASCET criteria. The left common carotid artery is normal in appearance. There is fibrofatty plaque in the proximal left internal carotid artery resulting in an estimated 20% stenosis using NASCET criteria. No arterial dissection identified. 7. VERTEBRAL ARTERIES: Minimal fibrocalcific plaque is noted at the left vertebral artery origin without evidence of flow-limiting stenosis. 8. SOFT TISSUES: The parapharyngeal fat spaces are preserved. There are calcifications in the palatine tonsils, likely related to sequela of remote infection. The base of the tongue, vallecula, epiglottis, and true vocal cords are unremarkable. 9. THYROID: There are nodules in the thyroid gland, largest of which is noted along the right para midline of the isthmus measuring 2.1 cm. Thyroid ultrasound is recommended for further evaluation. 10. ANEURYSM: No intracranial aneurysm is seen. 11. POSTERIOR CIRCULATION: The vertebrobasilar system is normal in appearance. The posterior cerebral arteries are unremarkable. CT scan - chest Additional comments: CTA of chest dated 06/09/16 shows: 1. LUNGS: No superior mediastinal lymphadenopathy. Calcified granuloma is noted. Calcified pleural plaques, raising the question of prior asbestos exposure. in the left lung apex. 2. BONES: Multilevel degenerative changes are noted in the spine. No fracture.
--- NOTE | 2016-06-09 13:38 | Event Note ---
Date of Encounter: 06/09/16 Time of Encounter: 13:34 Patient seen and examined with nurse clemente. He woke up at 4 AM with left neck pain and left periorbital pain. No loss of vision. No eye pain. No focal neurological deficits. No chest pain. Cc engine of the head and neck performed in the emergency room showed no evidence of dissection. There was only 20% left carotid stenosis which is insignificant. He has been having intermittent chest pain with no clear relation to exertion over the past year. 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 Will check d-dimer , carotid Doppler's, ESR although I doubt temporal arteritis and serial troponin. Family is requesting patient to be seen by cardiology service. He had an angiogram 5 years ago showed normal course of disease. Continuous telemetry monitoring. 12 lead EKG shows no ischemic changes
[2016-06-09] MEDS ORDERED: Naloxone 0.4 MG/ML INJ IVP PRN (13:53)
[2016-06-09] MEDS ORDERED: *HR* HYDROcodone/Acet 5/325 mg TABLET PO PRN (13:53)
[2016-06-09] MEDS ORDERED: *HR* Morphine 2 MG/ML SYRINGE IVP PRN (13:53)
[2016-06-09 15:14] LABS: Alanine Aminotransferase 19 Units/L (0-55); Albumin/Globulin Ratio 1.3 (1.1-2.2); Alkaline Phosphatase 59 Units/L (38-126); Aspartate Amino Transferase 15 Units/L (5-34); BUN/Creatinine Ratio 18 (6-26); Bilirubin,Total 0.7 mg/dL (0.2-1.2); Blood Urea Nitrogen 16 mg/dL (8-26); Calcium 9.1 mg/dL (8.6-10.8); Carbon Dioxide 27 mEq/L (19-29); Chloride 105 mEq/L (98-109); Chol/HDL Ratio 3.3 (0-4.9); Cholesterol 117 mg/dL (< 200); Globulin 3.1 g/dL (2.4-3.5); Glucose 111 mg/dL (70-99); HDL Cholesterol 35 mg/dL (40-59); LDL Cholesterol,Calculated 57 mg/dL (0-99); Magnesium 1.9 mg/dL (1.6-2.6); Osmolality,Calculated 292 (280-300); Potassium 3.7 mEq/L (3.5-4.5); Sodium 140 mEq/L (136-145); Total Protein 7.1 g/dL (6.0-8.3); Triglycerides 125 mg/dL (< 150); eGFR For African Americans > 60 (> 60); eGFR For Non-African Americans > 60 (> 60)
[2016-06-09] MEDS ORDERED: Dextrose Gel 15 GM PO PRN ×2 (15:51)
[2016-06-09] MEDS ORDERED: D5% in Water 1,000 ML IVC PRN (15:51)
[2016-06-09] MEDS ORDERED: *HR* Dextrose 50 % in Water (Syg) 50 ML SYRINGE IVP PRN (15:51)
[2016-06-09] MEDS: Insulin LISPRO 300 UNITS/3 ML VIAL SQ SCH (16:55)
[2016-06-09 17:37] LABS: Hemoglobin A1C 5.9 %
[2016-06-09] MEDS: Gabapentin 300 MG CAPSULE PO SCH (20:46)
[2016-06-09] MEDS: Acetaminophen 325 MG TABLET PO PRN (20:47)
[2016-06-09] MEDS ORDERED: Insulin LISPRO 300 UNITS/3 ML VIAL SQ SCH (21:00)
--- NOTE | 2016-06-10 08:23 | Cardiology Consult Note ---
Date of Encounter: 06/10/16 Time of Encounter: 08:21 Assessment and Plan (1) Chest pain Current Visit: Yes Status: Chronic Patient is a 71 year old male with history of hypertension, CAD, hyperlipidemia , diabetes, basal cell carcinoma, suspected gerd, and visits for chest pain with negative workup as described below who presented to the ED via EMS yesterday with complaint of left sided neck pain and intermittent episodes of chest pain. Patient reports having several episodes of mild chest pain overnight. Chest pain starts in left axilla and occassionally travels across left breast. Also reports midsternal to epigastric pain and was recently started on omeprazole. Workup from hospitalization on 06/05/16 for chief complaint of chest pain listed below: CXR 06/05/16 revealed no acute cardiopulm process, low inspiratory portable examination, lungs clear, cardiomediastinal silhouette unremarkable. EKG 06/05/16 reviewed. normal sinus rhythm, no acute changes, rate 77 Nuclear stress 06/05/16: perfusion was negative for ischemia or infarct, pharmacologic ecg was non diagnostic for ischemia, normal hemodynamic response, no chest pain with stress, no arrhythmia noted, gated EF >70%, LV not dilated CTA head and neck 06/09/16: unremarkable, no acute intracranial abnormality, 20 % stenosis in proximal left internal carotid artery, indeterminate thyroid nodule along right paramidline of isthmus 2.1cm, calcified pleural plaques. Troponins 0.00, 0.01, 0.00. BNP 36 EKG revealed normal sinus rhythm, rate 62, no st elevations depressions of t wave inversions, unchanged from prior. In light of prior negative workup, current negative troponins and ekg, and atypical presentation of chest pain that is reproducible with palpation, suspect chest pain is most likely musculoskeletal in origin. Chest pain may also be related at times due to suspected gerd. Recommend conservative measures at this time including warm compress, tylenol as needed for pain, range of motion and strength exercises. Advised patient to follow up with PCP regarding the musculoskeletal pain and may consider further therapies including OMT and physical therapy. Continue with omeprazole as the trial of omeprazole for only the past couple days is an inadequate trial. If patient develops chest pain with different characteristics more suggestive of typical chest pain, ekg changes, troponin elevations, or continued despite conservative management, it may be considered to do a repeat LHC for further investigation. At this time Cardiology will sign off. Please contact us with any additional questions. Qualifiers: Chest pain type: other chest pain Qualified Code(s): R07.89 - Other chest pain; R07.8 - Other chest pain (2) Neck pain on left side Current Visit: Yes Status: Acute Patient is a 71 year old male with history of hypertension, CAD, hyperlipidemia , diabetes, basal cell carcinoma, suspected gerd, and visits for chest pain with negative workup as described below who presented to the ED via EMS yesterday with complaint of left sided neck pain and intermittent episodes of chest pain. Patient reports having continued left neck pain overnight that can be elicited with palpation and worsened with turning head to the right. No recurrence of radiation to left face and occipital area. Area of pain initially located just posterior to the middle of the sternocleidomastoid on the left. Exam otherwise essentially normal, Neuro exam normal without focal deficits noted. CTA head and neck 06/09/16: unremarkable, no acute intracranial abnormality, 20 % stenosis in proximal left internal carotid artery, indeterminate thyroid nodule along right paramidline of isthmus 2.1cm, calcified pleural plaques. Based on history and exam, left neck pain appears to be musculoskeletal in etiology. Recommend conservative measures at this time including warm compress , tylenol as needed for pain, range of motion and strength exercises. Advised patient to follow up with PCP regarding the musculoskeletal pain and may consider further therapies including OMT and physical therapy. Pain secondary to thyroid nodule finding less likely based on location and reproducibility of pain on exam. (3) DVT (deep venous thrombosis) Current Visit: Yes Status: Chronic Patient has a known history of dvts secondary to knee arthroplasty and sedentary behavior. Continue Xarelto and aspirin. Encourage ambulation. No additional therapy or recommendations at this time. 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 Bp 118/71, pulse 82. Continue home meds for chronic disease management. Continue monitoring vitals. Qualifiers: Hypertension type: essential hypertension Qualified Code(s): I10 - Essential (primary) hypertension (5) Hyperlipidemia Current Visit: Yes Status: Chronic Tg 125, Cholesterol 117, LDL 57, VLDL 25, HDL 35 Continue home medications for chronic disease management. Qualifiers: Hyperlipidemia type: unspecified Qualified Code(s): E78.5 - Hyperlipidemia , unspecified (6) GERD (gastroesophageal reflux disease) Current Visit: Yes Status: Suspected Suspected GERD since last admission 06/05/16. Continue omeprazole. Follow up with PCP. Qualifiers: Esophagitis presence: esophagitis presence not specified Qualified Code(s) : K21.9 - Gastro-esophageal reflux disease without esophagitis Discussion w patient/family: The assessment and plan as outlined above was discussed with the patient and/or family members who expressed understanding and agreement. All questions were answered. Thank you for involving us in the care of your patient. Please call with any questions. History of Present Illness Consult date: 06/09/16 Requesting physician: Anjel Brandon Consult reason: hx of chest pain and dvt Chief complaint: Left sided neck pain History of present illness: Mr. Ramsey is a 71 year old male with history of CAD, dm, hld, history of dvts on xarelto, suspected gerd, history of chest pain with prior negative workup, and basal cell skin carcinoma who presented to the ED yesterday with complaint of left sided 5/10 severity achy neck pain that radiated occasionally sharply into the left side of his face, jaw, and left occipital area with associated sweats. Patient also reported occasional achy to sharp left sided chest pain that resolves spontaneously and not associated with activity that has been going on for >1 year. Patient was recently admitted on 06/05/16 for complaint of chest pain. Review of records 06/05/16 indicate patient presented to the ED with complaint of persistent chest pain that started around 1900pm and lasted till about 0400am before patient decided to go to the ED. Patient reported the pain was substernal at rest and achy in nature. Denied any association with exertion and at that time reported mild nausea and no relieving or exacerbating factors. EKG revealed normal sinus rhythm without acute changes. Patient at that time had minimal relief with nitroglycerin and some moderate relief of chest pain with Tums and was discharged with omeprazole. Additional workup as noted below. Reported LHC in 2011 without stenting. Echo 04/17/15: LVEF 60%, normal LV size and systolic function, normal RV size and function, no valvular dysfunction Exercise Stress Test 02/25/16: Exercise capacity fair, stress ecg is non- interpretable for ischemia due to severe ecg artifact during exercise and early recovery. Baseline ecg nsr without arrhythmia, no chest pain during stress procedure. Stress Echo 04/30/15: Exercise capacity was average, stress ecg is negative for ischemia although suboptimal ecg due to extensive artifact during exercise, normal LV systolic function LVEF 60%, appropriate increase in contractility of all myocardial segments with exercise, no ecg or echocardiographic evidence of ischemia, no chest pain during stress procedure. Holter monitor report 05/01/15: Baseline normal sinus rhythm, occasional PVC and PACs, several short runs of PAT (paroxysmal atrial tachycardia), symptoms palpitations correlate with both PVCs and PAT. Cervical xray 09/05/15: multilevel degenerative changes involving disc spaces and facet joints with large anterior osteophytes seen from C2-C5. CXR 06/05/16 revealed no acute cardiopulm process, low inspiratory portable examination, lungs clear, cardiomediastinal silhouette unremarkable. EKG 06/05/16 reviewed. normal sinus rhythm, no acute changes, rate 77 Nuclear stress 06/05/16: perfusion was negative for ischemia or infarct, pharmacologic ecg was non diagnostic for ischemia, normal hemodynamic response, no chest pain with stress, no arrhythmia noted, gated EF >70%, LV not dilated CTA head and neck 06/09/16: unremarkable, no acute intracranial abnormality, 20 % stenosis in proximal left internal carotid artery, indeterminate thyroid nodule along right paramidline of isthmus 2.1cm, calcified pleural plaques. Troponins at this visit have been 0.00, 0.01 0.00 0.00. BNP 36 Tg 125, Cholesterol 117, LDL 57, VLDL 25, HDL 35 Cardiology was consulted to reevaluate patient due to history of chest pain and history of dvts. Patient continues to have left neck pain overnight that can be elicited with palpation and worsened with turning head to the right. Patient reports continued episodes of mild left sided chest pain overnight that starts in the left axilla and occasionally travels across the left breast. Also reports continued midsternal to epigastric discomfort. Denies fevers, chills, sweats, changes in vision or hearing, nausea, vomiting, shortness of breath, abdominal pain, changes in bowels or bladder, weakness, or loss of sensation. Past Med Surg Social Fam HX - Past Medical History Medical history: cancer (Basal cell carcinoma of skin), coronary artery disease , DVT, hyperlipidemia, hypertension Psychiatric history: no psych history - Past Surgical History Surgical History: cancer surgery, knee replacement (Right knee), orthopedic, other - Social History Smoking Status: Former smoker (Patient reports he smoked in his 20's. States < 1 /2 pack per day.) Packs per day: <1/2 Smokeless Tobacco Status: No Alcohol use: none Drug use: none Occupational status: retired Current living situation: Home - Independent Activity Level: Independent ambulation Recent Out of Country Travel Within the Last 8 Weeks: No Exposure or Possible Exposure to Illness During Travel: No - Family History Mother Race: Family Member Ethnicity: Non- Living Status: Age at : 89 Cause of : Stroke Hx Family Cardiac Disorders: Yes (heart failure, DVT) Hx Family Cancer: Yes (Prostate & metastatic lung (father), Breast (2 sisters)) Hx Family Endocrine Disorder: Yes (DM) Father Race: Family Member Ethnicity: Non- Living Status: Age at : 84 (Metastatic cancer) Hx Family Cardiac Disorders: Yes (HD) Hx Family Cancer: Yes (Breast, metastatic lung ) Hx Family Endocrine Disorder: Yes Brother Race: Family Member Ethnicity: Non- Living Status: Still Living Hx Family Cardiac Disorders: Yes (HD, stent placement) Hx Family Cancer: Yes (Prostate & metastatic lung (father), Breast (2 sisters)) Hx Family Endocrine Disorder: Yes Sister Race: Family Member Ethnicity: Non- Living Status: Still Living Hx Family Cardiac Disorders: Yes (Brother) Hx Family Cancer: Yes (Breast (2 sisters), Prostate & metastatic lung (father)) Hx Family Endocrine Disorder: Yes Medications and Allergies Aspirin Enteric Coated [Aspirin EC] 81 mg PO DAILY 11/12/14 [History] Gabapentin [Neurontin] 300 mg PO TID 11/12/14 [History] Multivitamin [Multi-Day Vitamins] 1 tab PO DAILY 11/12/14 [History] Simvastatin [Zocor] 20 mg PO DAILY 11/12/14 [History] Terazosin [Hytrin] 10 mg PO DAILY 11/12/14 [History] Metformin [Glucophage] 500 mg PO DAILY 06/05/16 [History] Rivaroxaban [Xarelto] 20 mg PO DAILY 06/05/16 [History] Omeprazole [PriLOSEC] 20 mg PO DAILY #30 capsule. 06/06/16 [Rx] Cholecalciferol (Vitamin D3) [Vitamin D] 1,000 unit PO DAILY 06/09/16 [History] Allergies No Known Allergies Allergy (Verified 06/05/16 14:52) All Systems Review: A 10-system review of systems was performed and is negative for pertinent findings except as documented above in the HPI. - Constitutional Constitutional: no chills, no fatigue, no fever(s), no headache(s), no night sweats, no weakness - EENT Eyes: no blurred vision, no loss of vision Nose, mouth and throat: other (left neck pain), no dysphagia, no odynophagia, no sore throat - Cardiovascular Cardiovascular: chest pain at rest, no chest pain with exertion, no diaphoresis , no dyspnea at rest, no dyspnea on exertion, no lightheadedness, no palpitations - Respiratory Respiratory: no cough, no dyspnea - Gastrointestinal Gastrointestinal: no abdominal pain, no diarrhea, no nausea - Genitourinary Genitourinary: no dysuria, no hematuria - Musculoskeletal Musculoskeletal: no back pain - Integumentary Integumentary: no rash, no unusual bruising - Neurological Neurological: no abnormal speech, no dizziness, no focal weakness, no loss of vision, no memory loss, no numbness, no syncope, no tingling Physical Examination General: Conversant, No Apparent Distress HEENT: Atraumatic, Normocephaly, Mucus Membranes Moist Neck: No JVD, Normal carotid pulses Cardiac: Reg Rate and Rhythm, Normal S1 and S2, No Murmur Lungs: Normal Breath Sounds, No Wheeze, Rales, Rhonchi Neuro: Alert and responsive, No focal deficits noted Abdomen: Soft, Non-Tender Skin: No rashes noted on visualized skin Musculoskeletal: No Chest Wall Tenderness Extremities: No Clubbing, No Cyanosis, No Edema, Normal Pulses Results 06/09/16 06:25 06/09/16 14:29 Lab Results 06/09/16 06/09/16 06/09/16 14:29 14:29 14:29 D-Dimer Sodium 140 Potassium 3.7 Chloride 105 Carbon Dioxide 27 BUN 16 Creatinine 0.90 Glucose 111 H Calcium 9.1 Magnesium 1.9 Total Bilirubin 0.7 AST 15 ALT 19 Alkaline Phosphatase 59 Troponin I 0.01 B-Natriuretic Peptide 36 06/09/16 06/09/16 06/10/16 14:29 19:23 01:29 D-Dimer 223 Sodium Potassium Chloride Carbon Dioxide BUN Creatinine Glucose Calcium Magnesium Total Bilirubin AST ALT Alkaline Phosphatase Troponin I 0.00 0.00 B-Natriuretic Peptide Consult Discharge Plan - Plan Referrals: Cristian Franco MD [Primary Care Provider] - Laurent Calloway MD [Non-Partnered Physician] - 06/18/16 10:00 am (Previously scheduled appt for 06/11/16 is cancelled. New appt scheduled with Dr. Calloway on at 10:00am. )
[2016-06-10] MEDS: Insulin LISPRO 300 UNITS/3 ML VIAL SQ SCH ×2 (08:55→12:03)
[2016-06-10] MEDS ORDERED: Multivit/Ca/Min/Fe/FA 1 TAB TABLET PO SCH (09:00)
[2016-06-10] MEDS ORDERED: Cholecalciferol (D-3) 1,000 UNIT TABLET PO SCH (09:00)
[2016-06-10] MEDS ORDERED: *HR* Rivaroxaban 10 MG TABLET PO SCH (09:00)
[2016-06-10] MEDS ORDERED: Aspirin Enteric Coated 81 MG Tablet PO SCH (09:00)
[2016-06-10] MEDS: Gabapentin 300 MG CAPSULE PO SCH (09:14)
[2016-06-10 11:37] VITALS: BP 118/71
[2016-06-10] MEDS: Acetaminophen 325 MG TABLET PO PRN (12:12)
--- NOTE | 2016-06-10 13:25 | Electrocardiograph Report ---
[address] [address] Test Date: 2016-06-09 Pat Name: Willie Ramsey Department: 105 Room: 3B37 Gender: M [employer]: OLENA : 1945 Requested By: Milly Hodges Order Number: [id number] Reading MD: Alberto Patel MD Measurements Intervals [place] Rate: 62 P: 16 WI: 143 QRS: 25 QRSD: 83 T: 40 QT: 415 QTc: 421 Interpretive Statements SINUS RHYTHM Electronically Signed On 06-10-2016 13:23:43 EDT by Alberto Patel MD
--- NOTE | 2016-06-10 15:21 | Discharge Summary ---
Date of Encounter: 06/10/16 Time of Encounter: 14:15 - Discharge Diagnosis (1) Musculoskeletal neck pain Priority: Primary Status: Suspected Comments: Left-sided neck pain reproducible with palpation and worsened with movement. Nearly resolved by time of discharge. Follow-up outpatient. (2) Chest pain Priority: Primary Status: Ruled-out Comments: Troponins negative. No EKG changes. Patient seen by cardiology who cleared him for outpatient follow-up. (3) DVT (deep venous thrombosis) Priority: Secondary Status: Chronic Comments: no evidence of new clots. continue Xarelto Qualifiers: DVT location: lower extremity Affected thrombotic vein of extremity: popliteal Laterality: right Chronicity: chronic Qualified Code(s): I82.531 - Chronic embolism and thrombosis of right popliteal vein (4) Diabetes Priority: Secondary Status: Chronic Comments: Well controlled with an A1c of 5.9%, recommended continued follow-up outpatient. Qualifiers: Diabetes mellitus type: type 2 Diabetes mellitus complication status: without complication Diabetes mellitus assisted insulin use: without long term care administrator use Qualified Code(s): E11.9 - Type 2 diabetes mellitus without complications (5) Hypertension Priority: Secondary Status: Chronic Comments: Controlled/borderline hypotensive at times. Recommend daily blood pressure checks at home and following up outpatient. Normotensive on day of discharge. Qualifiers: Hypertension type: essential hypertension Qualified Code(s): I10 - Essential (primary) hypertension (6) Hyperlipidemia Priority: Secondary Status: Chronic Comments: Lipid panel unremarkable, recommend continue statin and low-cholesterol diet. Qualifiers: Hyperlipidemia type: unspecified Qualified Code(s): E78.5 - Hyperlipidemia , unspecified (7) GERD (gastroesophageal reflux disease) Priority: Primary Status: Acute Comments: Relatively new diagnosis, started on PPI on Tuesday. He was educated that this medication may take several weeks to take effect. Qualifiers: Esophagitis presence: esophagitis presence not specified Qualified Code(s) : K21.9 - Gastro-esophageal reflux disease without esophagitis (8) DVT prophylaxis Priority: Primary Status: Acute Comments: on Xarelto (9) Elevated PSA, less than 10 ng/ml Priority: Primary Status: Acute Comments: Patient is following up outpatient with urologist Dr. Petit - Discharge Medications Home Medications: Aspirin Enteric Coated [Aspirin EC] 81 mg PO DAILY 11/12/14 [History] Gabapentin [Neurontin] 300 mg PO TID 11/12/14 [History] Multivitamin [Multi-Day Vitamins] 1 tab PO DAILY 11/12/14 [History] Simvastatin [Zocor] 20 mg PO DAILY 11/12/14 [History] Terazosin [Hytrin] 10 mg PO DAILY 11/12/14 [History] Metformin [Glucophage] 500 mg PO DAILY 06/05/16 [History] Rivaroxaban [Xarelto] 20 mg PO DAILY 06/05/16 [History] Omeprazole [PriLOSEC] 20 mg PO DAILY #30 capsule. 06/06/16 [Rx] Cholecalciferol (Vitamin D3) [Vitamin D3] 1,000 unit PO DAILY 06/09/16 [History] Allergies/Adverse Reactions: Allergies No Known Allergies Allergy (Verified 06/05/16 14:52) Procedures/tests Complete & Pending: Procedures Performed prior 72 hours Category Date Time Status ECG 12 lead ECG [ECG] Routine Y 06/09/16 13:53 Ordered EV carotid duplex imaging BI Stat Y 06/09/16 14:08 Completed Date of admission: 06/09/16 11:59 Primary care physician: Cristian Franco MD Consults: 06/09/16 15:43 Consult to Cardiology [CONS] Routine Comment: Consulting Provider: [facility] Reason for Consult: History of chest pain, DVTs Call Completed: Yes Discharging clinician: Linda Rizzo Anticipated date of discharge: 06/10/16 - Patient Status Disposition: Home, Self-Care Condition: Good Functional capacity at discharge: independent ambulation Overall status at discharge: patient is back to baseline - Discharge Instructions Follow Up With: Cristian Franco MD [Primary Care Provider] - Laurent Calloway MD [Non-Partnered Physician] - 06/18/16 10:00 am (Previously scheduled appt for 06/11/16 is cancelled. New appt scheduled with Dr. Calloway on at 10:00am. ) [facility] [Provider Group] Additional Instructions: Follow-up with primary care provider as scheduled, follow-up with cardiology within 1-2 weeks - Diet and Activity Activity: increase activity as tolerated Diet: diabetic diet, low fat, low cholesterol, low salt diet Hospital course: Mr. Ramsey is a 71 year old male with past medical history of basal cell send cancer, CAD, prior DVT on Xarelto, hyperlipidemia, former tobacco abuse in distant past. Patient presented to the emergency department chief complaint of left-sided neck pain that radiated to the back of his head. Patient stating this pain began on the night of presentation when he woke up in the middle of the night and was diaphoretic. He states he also had feeling of numbness on the left side of his head. Of note, patient was admitted last week for rule out chest pain, and 3 days prior to presentation, he had a negative stress test. Workup in the emergency department unremarkable. Chest x-ray negative for acute processes. Patient had CTA of the head and neck that was unremarkable for acute processes. Imaging did reveal a thyroid nodule, follow- up outpatient for thyroid ultrasound as indicated. He was admitted to the hospitalist service for further evaluation and management. Troponins negative 4. No ECG changes. Cardiology was brought on board who surmised his pain was more consistent with musculoskeletal etiology and cleared him for outpatient follow-up. Patient denied chest pain throughout this admission and his left- sided neck pain improved with ice pack. He had no focal neurological weakness is present on examination. He is discharged home in stable condition with close outpatient follow-up recommended. Of note, he has an appointment with his new primary care provider on the day following discharge. ITS Impressions Chest X-Ray 06/09/16 06:05 IMPRESSION: 1. Stable mild enlargement of the cardiac silhouette. No superimposed acute pulmonary abnormality. D/ / David Blake MD / David Blake MD Interpreting Provider: David Blake MD Angiography CT 06/09/16 07:17 IMPRESSION: 1. Unremarkable CTA of the brain. No acute intracranial abnormality. 2. There is a 20% stenosis in the proximal left internal carotid artery. 3. Indeterminate nodule along the right paramidline of the isthmus measuring 2.1 cm. Follow-up thyroid ultrasound is recommended for further evaluation. 4. 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 D/ / 06/09/2016 09:55:29 Enrique Ca MD / mayito Interpreting Provider: Enrique Ca MD Neck CTA 06/09/16 07:17 IMPRESSION: 1. Unremarkable CTA of the brain. No acute intracranial abnormality. 2. There is a 20% stenosis in the proximal left internal carotid artery. 3. Indeterminate nodule along the right paramidline of the isthmus measuring 2.1 cm. Follow-up thyroid ultrasound is recommended for further evaluation. 4. 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 D/ / 06/09/2016 09:55:29 Enrique Ca MD / mayito Interpreting Provider: Enrique Ca MD - Time Spent with Patient Total time spent providing and/or coordinating discharge services: - Constitutional Vitals: Temp Pulse Resp BP Pulse Ox 98.3 F 82 17 118/71 98 06/10/16 11:37 06/10/16 11:37 06/10/16 11:37 06/10/16 11:37 06/10/16 11:37 General appearance: Present: cooperative, A&O X 3, pleasant, no acute distress, answers questions appropriately - Head Head exam: Present: atraumatic, normocephalic - Eye Eye exam: Present: PERRL, conjuntiva pink, sclera anicteric Pupils: Present: PERRL - Neck Neck exam general surgery: Present: tenderness, supple, trachea midline. Absent : lymphadenopathy - Respiratory Respiratory exam: Present: CTAB. Absent: accessory muscle use, rales, respiratory distress, rhonchi, wheezes - Cardiovascular Cardiovascular exam: Present: RRR, +S1, +S2. Absent: diastolic murmur, gallop, rubs, systolic murmur - GI/Abdominal GI/Abdominal exam: Present: normal bowel sounds, soft, no peritoneal signs. Absent: distended, tenderness - Extremities Exam Extremities exam: Present: warm, radial pulses palpable and symetrical. Absent : calf tenderness, cyanotic, pedal edema - Neurological Exam Neurological exam: Present: alert, CN II-XII intact, normal gait, oriented X3, no focal deficits, strengths equal and symetr throughout. Absent: pronater drift, facial droop, speech deficit - Skin Skin exam: Present: dry, intact, normal color, warm - VTE Documentation of Mechanical Device: Graduated compression elastic hosiery
--- NOTE | 2016-06-11 19:54 | Carotid Imaging Report ---
Carotid Duplex Patient Name:Willie Ramsey Order Number:[id number] Procedure Date:06/09/2016 Date:1945ge:71 yrs Gender:Male Rt.BP:126 / 68 mmHgHeart Rate: Location:[facility] Room #: Gauge Inspector:Chuy Diaz, [facility] Referring MD:Anjel Brandon, [facility] Reading MD:Roberto Carlos Herring MD Primary Indications:Occlusion and stenosis of carotid artery without mention of cerebral infarction Risk Factors Yes/No Hypertension Yes Impressions: Findings: Bilateral carotid system has nonstenotic plaque. Findings Carotid Duplex: Right: The right proximal common carotid artery has a PSV of 81 cm/s and a EDV of 13 cm/s. There is smooth heterogeneous plaque. The right mid common carotid artery has a PSV of 83 cm/s and a EDV of 16 cm/s. There is smooth heterogeneous plaque. The right distal common carotid artery has a PSV of 78 cm/s and a EDV of 23 cm/s. There is smooth heterogeneous plaque. The right bifurcation has a PSV of 78 cm/s and a EDV of 22 cm/s. There is smooth heterogeneous plaque. The right proximal internal carotid artery has a PSV of 62 cm/s and a EDV of 18 cm/s. The right mid internal carotid artery has a PSV of 83 cm/s and a EDV of 28 cm/s. The right distal internal carotid artery has a PSV of 62 cm/s and a EDV of 23 cm/s. The right eca has a PSV of 115 cm/s and a EDV of 14 cm/s. The right vertebral artery has a PSV of 39 cm/s and a EDV of 16 cm/s. Left: The left proximal common carotid artery has a PSV of 100 cm/s and a EDV of 25 cm/s. There is smooth heterogeneous plaque. The left mid common carotid artery has a PSV of 89 cm/s and a EDV of 22 cm/s. There is smooth heterogeneous plaque. The left distal common carotid artery has a PSV of 89 cm/s and a EDV of 28 cm/s. There is smooth heterogeneous plaque. The left bifurcation has a PSV of 70 cm/s and a EDV of 22 cm/s. There is smooth heterogeneous plaque. The left proximal internal carotid artery has a PSV of 94 cm/s and a EDV of 23 cm/s. The left mid internal carotid artery has a PSV of 84 cm/s and a EDV of 31 cm/s. The left distal internal carotid artery has a PSV of 73 cm/s and a EDV of 24 cm/s. The left eca has a PSV of 101 cm/s and a EDV of 15 cm/s. The left vertebral artery has a PSV of 50 cm/s and a EDV of 20 cm/s. Prior Study: No prior study available for comparison. Carotid Results Right PSV EDV Assessment Proximal CCA 81 13 Non Stenotic Plaque Mid CCA 83 16 Non Stenotic Plaque Distal CCA 78 23 Non Stenotic Plaque Bifurcation 78 22 Non Stenotic Plaque Proximal ICA 62 18 Normal Mid ICA 83 28 Normal Distal ICA 62 23 Normal ECA 115 14 Normal Vertebral Artery 39 16 Normal Left PSV EDV Assessment Proximal CCA 100 25 Non Stenotic Plaque Mid CCA 89 22 Non Stenotic Plaque Distal CCA 89 28 Non Stenotic Plaque Bifurcation 70 22 Non Stenotic Plaque Proximal ICA 94 23 Normal Mid ICA 84 31 Normal Distal ICA 73 24 Normal ECA 101 15 Normal Vertebral Artery 50 20 Normal Ratio's Right ICA/CCA Ratio: 1.10 ICA/CCA Values: 94/89 Left ICA/CCA Ratio: 1.00 ICA/CCA Values: 83/83 Updated by Roberto Carlos Herring MD on 06/11/2016 7:47:36 PM electronically signed on 06/11/2016 7:47:53 PM with status of Final
== END 2016-06-10 16:03 | disposition home or self-care (01) ==
LOC: EMEROO 05:38 → 3BNU 05:38
PROVIDERS: ADMIT Hospitalist; ATTEND Nurse Practitioner Family

== ENCOUNTER 2016-07-10 09:24 | Observation (INO) ==
--- NOTE | 2016-07-10 09:44 | Emergency Department Note ---
Disposition Clinical Impression: Lower gastrointestinal hemorrhage Disposition: Admitted As Inpatient Condition: Fair Referrals: Cristian Franco MD [Primary Care Provider] - Forms: ED Satisfaction Letter Time of Disposition: 11:39 GI Bleed HPI - General Chief complaint: ED GI Bleed Stated complaint: rectal bleeding Time Seen by Provider: 07/10/16 09:31 Source: patient Limitations: no limitations Nursing Notes Reviewed: Yes Vital Signs Reviewed: Yes - History of Present Illness HPI Narrative: 71-year-old who comes in complaining of rectal bleeding for the last several days. Patient has a history of hernia repair 06/21/2016. Said some problems with constipation. He states over the last couple of days he's had bowel movements in which the stool was not heard but has had blood in it. Patient states he had a colonoscopy about a year ago that showed bleeding polyps. He also reports a 17 pound weight loss the last couple of weeks. Pt Subjective Complaint: blood streaked stool Onset (ago): day(s) Consistency: intermittent Improves with: nothing Worsens with: nothing Context: anticoagulant use Associated symptoms: Reports: abdominal pain (Mild left lower quadrant associated with this hernia repair.) - Related Data Home Medications Medication Instructions Recorded Confirmed Aspirin Enteric Coated [Aspirin EC] 81 mg PO DAILY 11/12/14 07/10/16 Gabapentin [Neurontin] 600 mg PO BID 11/12/14 07/10/16 Multivitamin [Multi-Day Vitamins] 1 tab PO DAILY 11/12/14 07/10/16 Simvastatin [Zocor] 20 mg PO DAILY 11/12/14 07/10/16 Terazosin [Hytrin] 10 mg PO DAILY 11/12/14 07/10/16 Rivaroxaban [Xarelto] 20 mg PO DAILY 06/05/16 07/10/16 metFORMIN [Glucophage] 500 mg PO DAILY 06/05/16 07/10/16 Cholecalciferol (Vitamin D3) 1,000 unit PO DAILY 06/09/16 07/10/16 [Vitamin D3] Ranitidine HCl [Zantac] 300 mg PO HS 06/21/16 07/10/16 Previous Rx's Medication Instructions Recorded Docusate [Colace] 100 mg PO BID #30 capsule 06/21/16 Allergies Allergy/AdvReac Type Severity Reaction Status Date / Time No Known Allergies Allergy Verified 07/10/16 09:25 All systems ED: reviewed and negative except as stated. Constitutional: Denies: fever, chills, weakness, weight change Eyes: Denies: eye pain, eye discharge, vision change ENT ED: Denies: ear pain, throat pain, dental pain, hearing loss, epistaxis, congestion, dysphagia Cardiovascular: Denies: chest pain, palpitations, dyspnea on exertion, edema, syncope Respiratory: Denies: cough, dyspnea, wheezes, hemoptysis, stridor Gastrointestinal: Reports: abdominal pain, constipation. Denies: nausea, vomiting, diarrhea, hematemesis, melena, hematochezia Genitourinary: Denies: urgency, dysuria, frequency, hematuria Musculoskeletal: Denies: back pain, neck pain, arthralgia, myalgia Integumentary: Denies: rash, abrasion, lesions Neurological: Denies: headache, weakness, numbness, paresthesias, confusion, abnormal gait, vertigo Psychiatric: Denies: anxiety, depression, suicidal thoughts, homicidal thoughts , auditory hallucinations, visual hallucinations Endocrine: Denies: fatigue Hematological/Lymphatic: Denies: easy bleeding, easy bruising Allergic/Immunologic: Denies: facial swelling, urticaria Past Medical History - Past Medical History Medical history: Reports: cancer, coronary artery disease, DVT, hyperlipidemia, other Surgical history: Reports: cancer surgery, knee replacement, orthopedic, other Psychiatric history: Reports: no psych history - Social History Smoking Status: Never smoker Smokeless Tobacco Status: No Alcohol use: Reports: none Drug use: Reports: none Physical Exam - General Limitations: no limitations General appearance: alert, in no apparent distress - Head Head exam: atraumatic, normocephalic, normal inspection - Eye Eye exam: Present: normal appearance, PERRL, EOMI - ENT ENT exam: normal exam, normal oropharynx, mucous membranes moist - Neck Neck exam: Present: normal inspection, full ROM, trachea midline - Chest Chest inspection: Present: normal inspection, symmetric chest wall rise - Respiratory Respiratory exam: Present: normal lung sounds bilaterally - Cardiovascular Cardiovascular exam: Present: regular rate, normal rhythm, normal heart sounds - Abdominal Exam Abdominal exam: Present: soft, tenderness - Extremities Exam Extremities exam: Present: normal inspection, full ROM. Absent: tenderness, pedal edema - Expanded Lower Extremity Exam Neurovascular/Tendon exam: Absent: motor deficit, sensory deficit, tendon deficit Gait: observed and normal - Back Exam Back exam: Present: normal inspection, full ROM. Absent: tenderness - Neurological Exam Neurological exam: Present: alert, oriented X3 - Psychiatric Psychiatric exam: Present: normal affect, normal mood - Skin Skin exam: Present: warm, dry, intact, normal color Course - Consultations Consultation #1: Discussed with Dr. Hernandez, admit. Time: 11:39 Vital Signs Temperature 97.6 F 07/10/16 09:25 Pulse Rate 87 07/10/16 09:25 Respiratory Rate 15 07/10/16 09:25 Blood Pressure 114/70 07/10/16 09:25 O2 Sat by Pulse Oximetry 98 07/10/16 09:25 Temperature 97.6 F 07/10/16 09:25 Pulse Rate 87 07/10/16 09:25 Respiratory Rate 15 07/10/16 09:25 Blood Pressure 114/70 07/10/16 09:25 O2 Sat by Pulse Oximetry 98 07/10/16 09:25 Oxygen Delivery Oxygen Delivery Room Air GI Bleed - Lab Data Lab results reviewed: Yes I reviewed the patient's lab results. Result diagrams: 07/10/16 09:57 07/10/16 09:57 Lab Results 07/10/16 07/10/16 07/10/16 Range/Units 09:57 09:57 09:57 WBC 6.3 (4.3-11.1) K/mcL RBC 4.41 (4.19-5.50) M/mcL Hgb 13.8 (12.9-16.9) g/dL Hct 40.9 (37.5-50.1) % MCV 92.7 (83.0-100.0) fL MCH 31.3 (28.0-33.3) pg MCHC 33.7 (31.6-35.5) g/dL RDW 12.3 (11.5-14.5) % Plt Count 428 H (140-400) K/mcL MPV 9.0 L (9.4-12.4) fL Immature Gran % 0.3 (0-4) % Seg Neutrophils % 69.4 % Lymphocytes % 16.1 % Monocytes % 9.1 % Eosinophils % 4.3 % Basophils % 0.8 % Neutrophils # 4.4 (1.6-8.9) K/mcL Lymphocytes # 1.0 (0.6-4.6) K/mcL Monocytes # 0.6 (0.0-1.3) K/mcL Eosinophils # 0.3 (0.0-0.6) K/mcL Basophils # 0.1 (0.0-0.2) K/mcL Immature Plt Fraction 2.1 (1.1-6.1) % PT 15.6 H (9.4-12.1) Seconds INR 1.4 APTT 37.4 H (26.0-36.0) Seconds Sodium 141 (136-145) mEq/L Potassium 3.9 (3.5-4.5) mEq/L Chloride 105 (98-109) mEq/L Carbon Dioxide 26 (19-29) mEq/L BUN 12 (8-26) mg/dL Creatinine 0.99 (0.72-1.25) mg/dL Est GFR ( Amer) > 60 (> 60) Est GFR (Non-Af Amer) > 60 (> 60) BUN/Creatinine Ratio 12 (6-26) Glucose 135 H (70-99) mg/dL Calculated Osmolality 294 (280-300) Lactic Acid (0.5-2.2) mmol/L Calcium 9.3 (8.6-10.8) mg/dL Troponin I (0-0.03) ng/mL Lipase 27 (8-78) Units/L Stool Occult Blood (Negative) Blood Type Antibody Screen 07/10/16 07/10/16 07/10/16 Range/Units 09:57 09:57 09:57 WBC (4.3-11.1) K/mcL RBC (4.19-5.50) M/mcL Hgb (12.9-16.9) g/dL Hct (37.5-50.1) % MCV (83.0-100.0) fL MCH (28.0-33.3) pg MCHC (31.6-35.5) g/dL RDW (11.5-14.5) % Plt Count (140-400) K/mcL MPV (9.4-12.4) fL Immature Gran % (0-4) % Seg Neutrophils % % Lymphocytes % % Monocytes % % Eosinophils % % Basophils % % Neutrophils # (1.6-8.9) K/mcL Lymphocytes # (0.6-4.6) K/mcL Monocytes # (0.0-1.3) K/mcL Eosinophils # (0.0-0.6) K/mcL Basophils # (0.0-0.2) K/mcL Immature Plt Fraction (1.1-6.1) % PT (9.4-12.1) Seconds INR APTT (26.0-36.0) Seconds Sodium (136-145) mEq/L Potassium (3.5-4.5) mEq/L Chloride (98-109) mEq/L Carbon Dioxide (19-29) mEq/L BUN (8-26) mg/dL Creatinine (0.72-1.25) mg/dL Est GFR ( Amer) (> 60) Est GFR (Non-Af Amer) (> 60) BUN/Creatinine Ratio (6-26) Glucose (70-99) mg/dL Calculated Osmolality (280-300) Lactic Acid 1.8 (0.5-2.2) mmol/L Calcium (8.6-10.8) mg/dL Troponin I 0.00 (0-0.03) ng/mL Lipase (8-78) Units/L Stool Occult Blood (Negative) Blood Type O POSITIVE Antibody Screen NEGATIVE 07/10/16 Range/Units 10:00 WBC (4.3-11.1) K/mcL RBC (4.19-5.50) M/mcL Hgb (12.9-16.9) g/dL Hct (37.5-50.1) % MCV (83.0-100.0) fL MCH (28.0-33.3) pg MCHC (31.6-35.5) g/dL RDW (11.5-14.5) % Plt Count (140-400) K/mcL MPV (9.4-12.4) fL Immature Gran % (0-4) % Seg Neutrophils % % Lymphocytes % % Monocytes % % Eosinophils % % Basophils % % Neutrophils # (1.6-8.9) K/mcL Lymphocytes # (0.6-4.6) K/mcL Monocytes # (0.0-1.3) K/mcL Eosinophils # (0.0-0.6) K/mcL Basophils # (0.0-0.2) K/mcL Immature Plt Fraction (1.1-6.1) % PT (9.4-12.1) Seconds INR APTT (26.0-36.0) Seconds Sodium (136-145) mEq/L Potassium (3.5-4.5) mEq/L Chloride (98-109) mEq/L Carbon Dioxide (19-29) mEq/L BUN (8-26) mg/dL Creatinine (0.72-1.25) mg/dL Est GFR ( Amer) (> 60) Est GFR (Non-Af Amer) (> 60) BUN/Creatinine Ratio (6-26) Glucose (70-99) mg/dL Calculated Osmolality (280-300) Lactic Acid (0.5-2.2) mmol/L Calcium (8.6-10.8) mg/dL Troponin I (0-0.03) ng/mL Lipase (8-78) Units/L Stool Occult Blood Positive A (Negative) Blood Type Antibody Screen - Radiology Data Radiology results reviewed: Yes I reviewed the patient's radiology results. Abdomen/Pelvis CT 07/10/16 09:41 IMPRESSION: Postsurgical changes of recent left inguinal hernia repair. Marked prostate gland enlargement, similar to the prior study. Correlation with PSA levels is recommended. D/ / Ladonna Min Cha, MD / Ladonna Min Cha, MD Interpreting Provider: Ladonna Min Cha, MD - EKG Data EKG attestation: Yes I reviewed and interpreted this EKG. EKG shows normal: sinus rhythm Rate: normal Rhythm: NSR Interpretation: no acute changes
[2016-07-10 10:06] LABS: Basophils # 0.1 K/mcL (0.0-0.2); Basophils % 0.8 %; Eosinophils # 0.3 K/mcL (0.0-0.6); Eosinophils % 4.3 %; Hematocrit 40.9 % (37.5-50.1); Hemoglobin 13.8 g/dL (12.9-16.9); Immature Granulocytes % 0.3 % (0-4); Immature Platelets 2.1 % (1.1-6.1); Lymphocytes % 16.1 %; Mean Corpuscular HGB Conc 33.7 g/dL (31.6-35.5); Mean Corpuscular Hemoglobin 31.3 pg (28.0-33.3); Mean Corpuscular Volume 92.7 fL (83.0-100.0); Monocytes # 0.6 K/mcL (0.0-1.3); Monocytes % 9.1 %; Neutrophils # 4.4 K/mcL (1.6-8.9); Platelet Count 428 K/mcL (140-400); Red Blood Count 4.41 M/mcL (4.19-5.50); Red Cell Distribution Width 12.3 % (11.5-14.5); Segmented Neutrophils % 69.4 %
[2016-07-10 10:11] LABS: INR 1.4; Prothrombin Time 15.6 Seconds (9.4-12.1)
[2016-07-10 10:14] LABS: Activated Partial Thrombo Time 37.4 Seconds (26.0-36.0)
[2016-07-10 10:20] LABS: BUN/Creatinine Ratio 12 (6-26); Blood Urea Nitrogen 12 mg/dL (8-26); Calcium 9.3 mg/dL (8.6-10.8); Carbon Dioxide 26 mEq/L (19-29); Chloride 105 mEq/L (98-109); Glucose 135 mg/dL (70-99); Lipase 27 Units/L (8-78); Osmolality,Calculated 294 (280-300); Potassium 3.9 mEq/L (3.5-4.5); Sodium 141 mEq/L (136-145); eGFR For African Americans > 60 (> 60); eGFR For Non-African Americans > 60 (> 60)
[2016-07-10] MEDS ORDERED: Naloxone 0.4 MG/ML INJ IVP PRN (13:02)
[2016-07-10] MEDS ORDERED: D5% in Water 1,000 ML IVC PRN (13:06)
[2016-07-10] MEDS ORDERED: Dextrose Gel 15 GM PO PRN ×2 (13:06)
[2016-07-10] MEDS ORDERED: *HR* Dextrose 50 % in Water (Syg) 50 ML SYRINGE IVP PRN (13:06)
[2016-07-10] MEDS ORDERED: Acetaminophen 325 MG TABLET PO PRN (13:11)
--- NOTE | 2016-07-10 13:30 | Internal Med History&Physical ---
Date of Encounter: 07/10/16 Time of Encounter: 12:30 Assessment and Plan (1) Lower gastrointestinal hemorrhage Current visit: Yes Status: Suspected 1 patient has been experiencing streaks of bright red blood in stool as well as in the toilet. He does have past history of diverticulosis colonoscopy performed in 2016 did show some polyps. He denies any fevers or chills or leukocytosis patient is on long-term anticoagulation. I suspect this may be related to chronic laxative usage inflammation and irritation as well as anticoagulation. We will hold xarelto and asa for now. 2 monitor H&H-patient hemoglobin continues to drop or active bleeding is noted consult GI 3 encouraged patient to drink fluids avoid narcotic use, high-fiber diet (2) Hx of deep venous thrombosis Current visit: Yes Status: Acute She has past history of DVT is on chronic sore L to use. The experiencing some blood in stool will hold Xarelto for now and monitor for any active bleeding (3) Anticoagulant long-term use Current visit: Yes Status: Acute 1 as above (4) DVT prophylaxis Current visit: No Status: Acute SCD due to blood in stool Internal Medicine - H&P: HPI Chief complaint: blood in stool Admitted From: Emergency Dept Plans for Post Hospital Care: Home History of present illness: Mr. Ramsey is a 71 year old male past medical history of BPH several DVT in the past he is on chronic Xarelto coronary artery disease diverticulosis. According to the patient he has issues with chronic constipation he been utilizing laxatives regularly. He had a recent inguinal hernia repair first of June and was on pain medication he then had more constipation he used to enema last week which did result in a large hard stool with some streaks of blood. He notified his PCP advised him to monitor with likely related to hard stool. This week patient again had some issues with constipation and this morning he did take an enema which resulted in a moderate stool with bright red blood in the toilet. He again called his ECP with I's and go to the ER for evaluation. Patient has not had any other episodes of rectal bleeding. He denies any melena hematemesis or hematochezia. He does have abdominal pain however it is situated around his surgical site. He denies any fevers chills nausea vomiting or diarrhea. He does state he has lost approximately 15-20 pounds since May which this is being worked up by his primary care physician. He states he has been able to eat and drink without any difficulty. She presented to the ER with above complaints. According to ER records CT of abdomen Revealed Postsurgical changes of recent left inguinal hernia repair.Marked prostate gland enlargement, similar to the prior study. Hemoglobin stable at 13.8 PT 15.6 INR 1.4 PTT 37.4 occult stool was positive chemistry was unremarkable he was hemodynamically stable. He is admitted for further workup and evaluation. Present patient denies any chest or abdominal pain lung sounds are clear throughout heart sounds S1-S2 no rubs clicks, murmurs noted abdomen soft nontender palpation. He is hemodynamically stable this time.I reviewed this case with Dr Hernandez who agrees with plan. Past Med Surg Social Fam HX - Past Medical History Medical history: cancer, coronary artery disease, DVT, diabetes, hyperlipidemia , other Psychiatric history: no psych history - Past Surgical History Surgical History: cancer surgery, knee replacement, orthopedic, other - Social History Smoking Status: Never smoker Smokeless Tobacco Status: No Alcohol use: none Drug use: none - Family History Mother Family Member Ethnicity: Non- Living Status: Hx Family Cardiac Disorders: Yes (heart failure, DVT) Hx Family Cancer: Yes (Prostate & metastatic lung (father), Breast (2 sisters)) Hx Family Endocrine Disorder: Yes (DM) Father Family Member Ethnicity: Non- Living Status: Hx Family Cardiac Disorders: Yes (HD) Hx Family Cancer: Yes (Breast, metastatic lung ) Hx Family Endocrine Disorder: Yes Brother Family Member Ethnicity: Non- Living Status: Still Living Hx Family Cardiac Disorders: Yes (HD, stent placement) Hx Family Cancer: Yes (Prostate & metastatic lung (father), Breast (2 sisters)) Hx Family Endocrine Disorder: Yes Sister Family Member Ethnicity: Non- Living Status: Still Living Hx Family Cardiac Disorders: Yes (Brother) Hx Family Cancer: Yes (Breast (2 sisters), Prostate & metastatic lung (father)) Hx Family Endocrine Disorder: Yes Internal Medicine - H&P: Meds Aspirin Enteric Coated [Aspirin EC] 81 mg PO DAILY 11/12/14 [History] Gabapentin [Neurontin] 600 mg PO BID 11/12/14 [History] Multivitamin [Multi-Day Vitamins] 1 tab PO DAILY 11/12/14 [History] Simvastatin [Zocor] 20 mg PO DAILY 11/12/14 [History] Terazosin [Hytrin] 10 mg PO DAILY 11/12/14 [History] Rivaroxaban [Xarelto] 20 mg PO DAILY 06/05/16 [History] metFORMIN [Glucophage] 500 mg PO DAILY 06/05/16 [History] Cholecalciferol (Vitamin D3) [Vitamin D3] 1,000 unit PO DAILY 06/09/16 [History] Docusate [Colace] 100 mg PO BID #30 capsule 06/21/16 [Rx] Ranitidine HCl [Zantac] 300 mg PO HS 06/21/16 [History] Allergies No Known Allergies Allergy (Verified 07/10/16 09:25) All Systems PM: A 10-system review of systems was performed and is negative for pertinent findings except as documented above in the HPI. - Constitutional Constitutional: weight loss - EENT Nose, mouth and throat: no dysphagia, no nasal discharge, no neck pain, no sore throat - Cardiovascular Cardiovascular ROS IM: no chest pain, no diaphoresis, no dyspnea, no lightheadedness, no palpitations, no syncope - Respiratory Respiratory: no cough, no dyspnea, no wheezing, no excessive phlegm production - Gastrointestinal Gastrointestinal: abdominal pain, change in bowel habits, constipation - Musculoskeletal Musculoskeletal ROS IM: no numbness, no tingling - Integumentary Integumentary IM: no rash, no unusual bruising - Neurological Neurological ROS: numbness, no confusion, no convulsions, no focal weakness, no tingling, no tremor(s) - Hematologic/Lymphatic Hematologic/Lymphatic: no easy bruising - Constitutional Vitals: Temp Pulse Resp BP Pulse Ox 97.8 F 63 16 128/67 98 07/10/16 12:44 07/10/16 12:44 07/10/16 12:44 07/10/16 12:44 07/10/16 12:44 General appearance: Present: A&O X 3, answers questions appropriately - Head Head exam: Present: atraumatic, normocephalic - Eye Eye exam: Present: PERRL, conjuntiva pink, sclera anicteric Pupils: Present: PERRL - Neck Neck exam general surgery: Present: supple, trachea midline. Absent: lymphadenopathy - Respiratory Respiratory exam: Present: CTAB. Absent: accessory muscle use, rales, rhonchi, wheezes - Cardiovascular Cardiovascular exam: Present: RRR, +S1, +S2. Absent: diastolic murmur, gallop, rubs, systolic murmur - GI/Abdominal GI/Abdominal exam: Present: normal bowel sounds, soft, no peritoneal signs. Absent: distended, tenderness - Extremities Exam Extremities exam: Present: warm, radial pulses palpable and symetrical. Absent : calf tenderness, cyanotic, pedal edema - Neurological Exam Neurological exam: Present: CN II-XII intact, oriented X3, no focal deficits. Absent: pronater drift, facial droop, speech deficit - Skin Skin exam: Present: dry, intact Internal Med - H&P Results - Labs CBC & Chem 7: 07/10/16 09:57 07/10/16 09:57 - EKG Data EKG shows normal: sinus rhythm - EKG Data Prior EKG available for review: no - Diagnostic Studies Other Images Additional comments: Abdomen/Pelvis CT 07/10/16 09:41 IMPRESSION: Postsurgical changes of recent left inguinal hernia repair. Marked prostate gland enlargement, similar to the prior study. Correlation with PSA levels is recommended. D/ / Ladonna Min Cha, MD / Ladonna Min Cha, MD Interpreting Provider: Ladonna Min Cha, MD
[2016-07-10 14:24] LABS: Hematocrit 39.3 % (37.5-50.1); Hemoglobin 13.5 g/dL (12.9-16.9)
[2016-07-10] MEDS: Insulin LISPRO 300 UNITS/3 ML VIAL SQ SCH ×2 (16:20→20:41)
[2016-07-10] MEDS: Famotidine 20 MG TABLET PO SCH (20:43)
[2016-07-10] MEDS: Gabapentin 300 MG CAPSULE PO SCH (20:44)
[2016-07-11 03:59] LABS: Basophils # 0.1 K/mcL (0.0-0.2); Basophils % 1.1 %; Eosinophils # 0.5 K/mcL (0.0-0.6); Eosinophils % 6.5 %; Hematocrit 38.6 % (37.5-50.1); Hemoglobin 13.2 g/dL (12.9-16.9); Immature Granulocytes % 0.1 % (0-4); Lymphocytes # 2.3 K/mcL (0.6-4.6); Lymphocytes % 32.4 %; Mean Corpuscular HGB Conc 34.2 g/dL (31.6-35.5); Mean Corpuscular Hemoglobin 31.7 pg (28.0-33.3); Mean Corpuscular Volume 92.8 fL (83.0-100.0); Mean Platelet Volume 8.9 fL (9.4-12.4); Monocytes # 0.8 K/mcL (0.0-1.3); Monocytes % 10.9 %; Neutrophils # 3.4 K/mcL (1.6-8.9); Platelet Count 373 K/mcL (140-400); Red Blood Count 4.16 M/mcL (4.19-5.50); Red Cell Distribution Width 12.3 % (11.5-14.5)
[2016-07-11 04:16] LABS: BUN/Creatinine Ratio 13 (6-26); Blood Urea Nitrogen 12 mg/dL (8-26); Calcium 8.8 mg/dL (8.6-10.8); Carbon Dioxide 26 mEq/L (19-29); Chloride 105 mEq/L (98-109); Glucose 114 mg/dL (70-99); Osmolality,Calculated 289 (280-300); Potassium 3.6 mEq/L (3.5-4.5); Sodium 139 mEq/L (136-145); eGFR For African Americans > 60 (> 60); eGFR For Non-African Americans > 60 (> 60)
[2016-07-11] MEDS: Insulin LISPRO 300 UNITS/3 ML VIAL SQ SCH ×4 (07:46→21:53)
[2016-07-11] MEDS: Cholecalciferol (D-3) 1,000 UNIT TABLET PO SCH (07:47)
[2016-07-11] MEDS: Gabapentin 300 MG CAPSULE PO SCH ×2 (07:47→21:55)
[2016-07-11] MEDS: *HR* Rivaroxaban 10 MG TABLET PO SCH (09:06)
[2016-07-11] MEDS: Aspirin Enteric Coated 81 MG Tablet PO SCH (09:06)
[2016-07-11] MEDS: Sennosides/Docusate Sodium TABLET PO SCH ×2 (09:06→21:55)
--- NOTE | 2016-07-11 10:00 | Internal Med Progress Note ---
Date of Encounter: 07/11/16 Time of Encounter: 09:58 - Assessment and plan (1) Diabetes Current Visit: Yes Status: Chronic Assessment and plan: Pre-DM FS acceptable On Metformin at home, continue same Qualifiers: Diabetes mellitus type: type 2 Diabetes mellitus complication status: without complication Diabetes mellitus detention insulin use: without detention use Qualified Code(s): E11.9 - Type 2 diabetes mellitus without complications (2) Hypertension Current Visit: Yes Status: Chronic Assessment and plan: Controlled, continue home meds Qualifiers: Hypertension type: essential hypertension Qualified Code(s): I10 - Essential (primary) hypertension (3) Hyperlipidemia Current Visit: Yes Status: Chronic Assessment and plan: Continue home meds Qualifiers: Hyperlipidemia type: unspecified Qualified Code(s): E78.5 - Hyperlipidemia , unspecified (4) GERD (gastroesophageal reflux disease) Current Visit: Yes Status: Chronic Assessment and plan: Continue home meds Qualifiers: Esophagitis presence: esophagitis presence not specified Qualified Code(s) : K21.9 - Gastro-esophageal reflux disease without esophagitis (5) Lower gastrointestinal hemorrhage Current Visit: Yes Status: Suspected Assessment and plan: Suspected, possibly from traumatic enema Stable now Resume home ASA/Xarelto, benefits outweigh risks (6) Hx of deep venous thrombosis Current Visit: Yes Status: Acute (7) Anticoagulant long-term use Current Visit: Yes Status: Chronic Assessment and plan: Secondary to DVT Restart meds (8) Thyroid nodule Current Visit: Yes Status: Chronic Assessment and plan: Biopsy as out-patient TSH WNL - Subjective Interval history: 71 YO M with CAD, DVTs, diverticulosis, rectal polys, chronic constipation Admitted and being managd for LGIB followng multiple enemas at home by patient Seen and evaluated at bedside, no new complains NO rectal bleeds since hospitalization, no melena patient fixated on his neck pain, chart review revales mild DJD and bilateral thyroid nodules had extensive discussion with patient and his to ensure follow up with PCP for biopsy of nodules Restart ASA/Xarelto Start senna-plus Anticipate d/c a.m if Hb stable - Constitutional Vitals: Temp Pulse Resp BP Pulse Ox 97.5 F L 62 16 127/75 96 07/11/16 06:43 07/11/16 06:43 07/11/16 06:43 07/11/16 06:43 07/11/16 06:45 General appearance: Present: A&O X 3, pleasant, no acute distress, answers questions appropriately - Head Head exam: Present: atraumatic, normocephalic - Eye Eye exam: Present: PERRL, conjuntiva pink, sclera anicteric Pupils: Present: PERRL - Neck Neck exam general surgery: Present: supple, trachea midline. Absent: lymphadenopathy - Respiratory Respiratory exam: Present: CTAB. Absent: accessory muscle use, rales, rhonchi, wheezes - Cardiovascular Cardiovascular exam: Present: RRR, +S1, +S2. Absent: diastolic murmur, gallop, rubs, systolic murmur - GI/Abdominal GI/Abdominal exam: Present: normal bowel sounds, soft, no peritoneal signs. Absent: distended, tenderness - Extremities Exam Extremities exam: Present: warm, radial pulses palpable and symetrical. Absent : calf tenderness, cyanotic, pedal edema - Neurological Exam Neurological exam: Present: alert, CN II-XII intact, oriented X3, no focal deficits. Absent: pronater drift, facial droop, speech deficit - Skin Skin exam: Present: dry, intact Internal Medicine: Result - Labs CBC & Chem 7: 07/11/16 03:45 07/11/16 03:45 Labs: Short CBC 07/10/16 07/11/16 Range/Units 14:08 03:45 WBC 7.0 (4.3-11.1) K/mcL Hgb 13.5 13.2 (12.9-16.9) g/dL Hct 39.3 38.6 (37.5-50.1) % Plt Count 373 (140-400) K/mcL Neutrophils # 3.4 (1.6-8.9) K/mcL BMP 07/11/16 03:45 Sodium 139 Potassium 3.6 Chloride 105 Carbon Dioxide 26 BUN 12 Creatinine 0.92 Glucose 114 H Calcium 8.8 Cardiac Enzymes 07/10/16 07/10/16 Range/Units 14:08 20:24 Troponin I 0.00 0.00 (0-0.03) ng/mL - ABG Interpretation ABG results: PT/INR, D-dimer PT 15.6 Seconds (9.4-12.1) H 07/10/16 09:57 Consult Discharge Plan - Plan Referrals: Cristian Franco MD [Primary Care Provider] -
[2016-07-11] MEDS: Famotidine 20 MG TABLET PO SCH (21:55)
[2016-07-12 07:30] VITALS: BP 116/70
--- NOTE | 2016-07-12 08:12 | Discharge Summary ---
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 insulin use: without long-term use Qualified Code(s): E11.9 - Type 2 diabetes mellitus without complications (2) Hypertension Priority: Secondary Status: Chronic Qualifiers: Hypertension type: essential hypertension Qualified Code(s): I10 - Essential (primary) hypertension (3) Hyperlipidemia Priority: Secondary Status: Chronic Qualifiers: Hyperlipidemia type: unspecified Qualified Code(s): E78.5 - Hyperlipidemia , unspecified (4) GERD (gastroesophageal reflux disease) Priority: Secondary Status: Chronic Qualifiers: Esophagitis presence: esophagitis presence not specified Qualified Code(s) : K21.9 - Gastro-esophageal reflux disease without esophagitis (5) Lower gastrointestinal hemorrhage Priority: Primary Status: Suspected (6) Hx of deep venous thrombosis Priority: Secondary Status: Chronic (7) Anticoagulant long-term use Priority: Secondary Status: Chronic (8) Thyroid nodule Priority: Secondary Status: Chronic - Discharge Medications Prescriptions: Sennosides/Docusate Sodium [Senna Plus] 2 each PO BID PRN #60 tablet PRN Reason: Constipation Home Medications: Aspirin Enteric Coated [Aspirin EC] 81 mg PO DAILY 11/12/14 [History] Gabapentin [Neurontin] 600 mg PO BID 11/12/14 [History] Multivitamin [Multi-Day Vitamins] 1 tab PO DAILY 11/12/14 [History] Simvastatin [Zocor] 20 mg PO DAILY 11/12/14 [History] Terazosin [Hytrin] 10 mg PO DAILY 11/12/14 [History] Rivaroxaban [Xarelto] 20 mg PO DAILY 06/05/16 [History] metFORMIN [Glucophage] 500 mg PO DAILY 06/05/16 [History] Cholecalciferol (Vitamin D3) [Vitamin D3] 1,000 unit PO DAILY 06/09/16 [History] Ranitidine HCl [Zantac] 300 mg PO HS 06/21/16 [History] Sennosides/Docusate Sodium [Senna Plus] 2 each PO BID PRN #60 tablet 07/12/16 [ Rx] Allergies/Adverse Reactions: Allergies No Known Allergies Allergy (Verified 07/10/16 09:25) Date of admission: 07/10/16 11:41 Primary care physician: Cristian Franco MD Discharging clinician: Thai Ayala Anticipated date of discharge: 07/12/16 - Patient Status Disposition: Home, Self-Care Condition: Fair Functional capacity at discharge: independent ambulation Overall status at discharge: patient is back to baseline - Discharge Instructions Follow Up With: Cristian Franco MD [Primary Care Provider] - - Diet and Activity Activity: resume usual activities as tolerated Diet: diabetic diet, low salt diet Interval History: See below Hospital course: Mr. Ramsey is a 71 year old male with CAD, DVTs, diverticulosis, rectal polys, chronic constipation, pre-DM Admitted and managed for suspecyed LGIB following multiple enemas at home by patient, likely secondary to traumatic enema, and hemorrhoids Work up was unremarkable, A1C 5.9 Seen and evaluated at bedside, no new complains No rectal bleeds since hospitalization, no melena, had one BM last night. slightly streaked with blood Patient has been hemodynamically stable, HB stable at 13 HIs home ASA/Xarelto was held on admission but restarted promptly after repeat HB showed stability and patient did not have any significant bleeding Started on Senna-Plus for his chronic constipation He had an incidentally discovered bilateral thyroid nodules during work up for his chronic neck pain, encouraged to follow up with PCP for biopsy Stable to be discharged home with family on current home meds Plan of care discussed, verbalized understanding - Time Spent with Patient Total time spent providing and/or coordinating discharge services: Less than 30 minutes - Constitutional Vitals: Temp Pulse Resp BP Pulse Ox 97.8 F 65 14 116/70 95 07/12/16 07:19 07/12/16 07:19 07/12/16 07:19 07/12/16 07:19 07/12/16 07:19 General appearance: Present: A&O X 3, pleasant, no acute distress, answers questions appropriately - Head Head exam: Present: atraumatic, normocephalic - Eye Eye exam: Present: PERRL, conjuntiva pink, sclera anicteric Pupils: Present: PERRL - Neck Neck exam general surgery: Present: supple, trachea midline. Absent: lymphadenopathy - Respiratory Respiratory exam: Present: CTAB. Absent: accessory muscle use, rales, rhonchi, wheezes - Cardiovascular Cardiovascular exam: Present: RRR, +S1, +S2. Absent: diastolic murmur, gallop, rubs, systolic murmur - GI/Abdominal GI/Abdominal exam: Present: normal bowel sounds, soft, no peritoneal signs. Absent: distended, tenderness - Extremities Exam Extremities exam: Present: warm, radial pulses palpable and symetrical. Absent : calf tenderness, cyanotic, pedal edema - Neurological Exam Neurological exam: Present: alert, CN II-XII intact, oriented X3, no focal deficits. Absent: pronater drift, facial droop, speech deficit - Skin Skin exam: Present: dry, intact
[2016-07-12] MEDS: Cholecalciferol (D-3) 1,000 UNIT TABLET PO SCH (08:49)
[2016-07-12] MEDS: Insulin LISPRO 300 UNITS/3 ML VIAL SQ SCH (08:49)
[2016-07-12] MEDS: Gabapentin 300 MG CAPSULE PO SCH (08:49)
[2016-07-12] MEDS: Sennosides/Docusate Sodium TABLET PO SCH (08:49)
[2016-07-12] MEDS: Aspirin Enteric Coated 81 MG Tablet PO SCH (08:50)
[2016-07-12] MEDS: *HR* Rivaroxaban 10 MG TABLET PO SCH (08:50)
--- NOTE | 2016-07-12 16:49 | Electrocardiograph Report ---
[place] [id number] Test Date: 2016-07-10 Pat Name: Willie Ramsey Department: 102 Room: 3A Gender: M Hospitality Ambassador: : 1945 Requested By: Monty Montoya Order Number: [id number] Reading MD: Cristian Wilson Measurements Intervals [place] Rate: 76 P: 33 DE: 141 QRS: 24 QRSD: 74 T: 47 QT: 366 QTc: 396 Interpretive Statements SINUS RHYTHM Electronically Signed On 07-12-2016 16:47:30 EDT by Cristian Wilson
== END 2016-07-12 09:23 | disposition home or self-care (01) ==
LOC: EMEROO 09:24 → 3ANU 09:24
PROVIDERS: ADMIT Nurse Practitioner Acute Care; ATTEND Internal Medicine

== ENCOUNTER 2021-01-09 17:21 | Inpatient (IN) ==
[2021-01-09] MEDS ORDERED: Isovue-370 500 ML BOTTLE IVP ONE (18:13)
[2021-01-09] MEDS ORDERED: *HR* FentaNYL (PF) 100 MCG/2 ML VIAL IVP ONE (18:33)
[2021-01-09] MEDS ORDERED: Ondansetron 4 MG/2 ML VIAL IVP ONE (18:33)
[2021-01-09 18:54] LABS: Hemoglobin 13.9 g/dL (12.9-16.9); Mean Corpuscular HGB Conc 33.1 g/dL (31.6-35.5); Mean Corpuscular Hemoglobin 32.2 pg (28.0-33.3); Mean Corpuscular Volume 97.2 fL (83.0-100.0); Mean Platelet Volume 9.6 fL (9.4-12.4); Platelet Count 390 K/mcL (140-400); Red Blood Count 4.32 M/mcL (4.19-5.50); Red Cell Distribution Width 13.4 % (11.5-14.5); White Blood Count 15.7 K/mcL (4.3-11.1)
[2021-01-09 19:21] LABS: Alanine Aminotransferase 16 Units/L (7-52); Albumin 4.4 g/dL (3.5-5.7); Albumin/Globulin Ratio 1.3 (1.1-2.2); Alkaline Phosphatase 63 Units/L (34-104); Amylase 23 Units/L (29-103); Aspartate Amino Transferase 14 Units/L (13-39); BUN/Creatinine Ratio 18 (6-26); Bilirubin,Total 0.9 mg/dL (0.3-1.0); Blood Urea Nitrogen 23 mg/dL (8-23); Calcium 9.2 mg/dL (8.6-10.3); Carbon Dioxide 25 mEq/L (23-29); Chloride 99 mEq/L (98-107); Globulin 3.3 g/dL (2.4-3.5); Glucose 228 mg/dL (70-105); Lipase 16 Units/L (11-82); Osmolality,Calculated 293 (280-300); Potassium 3.9 mEq/L (3.5-5.1); Sodium 136 mEq/L (136-145); Total Protein 7.7 g/dL (6.4-8.9); eGFR For African Americans > 60 (> 60); eGFR For Non-African Americans 54 (> 60)
[2021-01-09 19:42] LABS: Lymphocytes # 0.6 K/mcL (0.6-4.6); Monocytes # 1.1 K/mcL (0.0-1.3); Platelet Estimate Normal (Normal); Reactive Lymphocytes Present (Not Present)
[2021-01-09] MEDS ORDERED: 0.9 % Sodium Chloride 1,000 ML IV ONE (19:44)
[2021-01-09] MEDS ORDERED: Piperacillin/Tazobactam 3.375 GM in 0.9 % Sodium Chloride Mini Bag 100 ML IVPB ONE (20:17)
[2021-01-09 20:45] LABS: Bilirubin,Urine Negative (Negative); Blood,Urine Negative (Negative); Clarity,Urine Clear (Clear); Color,Urine Yellow (Yellow); Glucose,Urine (UA) 300 mg/dL (Normal); Ketones,Urine Trace mg/dL (Negative); Leukocyte Esterase,Urine Negative (Negative); Mucus,Urine Many per lpf (None-Few); Nitrite,Urine Negative (Negative); PH,Urine 5.5 pH Units (5.0-8.0); Protein,Urine 50 mg/dL (Neg-Trace); RBC,Urine 0-3 per hpf (0-3); Specific Gravity,Urine > 1.030 (1.010-1.025); Squamous Epithelial Cell,Urine Few per hpf (None-Few); Urobilinogen,Urine Normal (Normal); WBC,Urine 0-3 per hpf (0-3)
[2021-01-09] MEDS ORDERED: Naloxone 0.4 MG/ML INJ IVP PRN (20:51)
[2021-01-09] MEDS ORDERED: *HR* Dextrose 50 % in Water (Syg) 50 ML SYRINGE IVP PRN (20:59)
[2021-01-09] MEDS ORDERED: Dextrose Gel 15 GM/37.5 ML TUBE PO PRN ×2 (20:59)
[2021-01-09] MEDS ORDERED: D5% in Water 1,000 ML IVC PRN (20:59)
[2021-01-09] MEDS ORDERED: Insulin LISPRO 300 UNITS/3 ML VIAL SUBQ SCH (21:00)
[2021-01-09] MEDS ORDERED: Melatonin 3 MG TABLET PO PRN (21:00)
[2021-01-09 21:14] LABS: Influenza A PCR Negative (Negative); Influenza B PCR Negative (Negative); Resp. Syncytial Virus PCR Negative (Negative)
[2021-01-09 21:16] LABS: SARS-CoV-2 by PCR (In House) Negative (Negative)
[2021-01-09] MEDS ORDERED: 0.9 % Sodium Chloride 1,000 ML IVC ONE (21:39)
[2021-01-09 22:55] LABS: Hematocrit 38.6 % (37.5-50.1); Hemoglobin 12.8 g/dL (12.9-16.9); Mean Corpuscular HGB Conc 33.2 g/dL (31.6-35.5); Mean Corpuscular Volume 96.5 fL (83.0-100.0); Mean Platelet Volume 9.8 fL (9.4-12.4); Platelet Count 365 K/mcL (140-400); Red Cell Distribution Width 13.4 % (11.5-14.5); White Blood Count 14.3 K/mcL (4.3-11.1)
[2021-01-09 23:04] LABS: INR 2.6; Prothrombin Time 28.3 Seconds (9.4-12.1)
[2021-01-09] MEDS: 0.9 % Sodium Chloride 1,000 ML IVC SCH (23:09)
[2021-01-09 23:16] LABS: Heparin anti-factor XA UFH 1.07 IU/mL (0.30-0.70)
[2021-01-10] MEDS: Piperacillin/Tazobactam 3.375 GM in 0.9 % Sodium Chloride Mini Bag 100 ML IVPB SCH ×3 (05:51→20:07)
[2021-01-10] MEDS: Insulin LISPRO 300 UNITS/3 ML VIAL SUBQ SCH ×4 (06:23→19:48)
[2021-01-10] MEDS ORDERED: *HR* Heparin 5,000 UNIT/ML VIAL IVP PRN ×2 (09:00)
[2021-01-10] MEDS ORDERED: Heparin 25,000UNIT/250ML 1/2NS 25,000 UNIT/250 ML IV.SOLN IVC SCH (09:00)
[2021-01-10] MEDS ORDERED: *HR* Heparin 5,000 UNIT/ML VIAL IVP ONE (09:00)
[2021-01-10 09:06] LABS: INR 2.4; Prothrombin Time 26.3 Seconds (9.4-12.1)
[2021-01-10 09:22] LABS: Hematocrit 34.8 % (37.5-50.1); Hemoglobin 11.5 g/dL (12.9-16.9); Mean Corpuscular Hemoglobin 32.4 pg (28.0-33.3); Mean Platelet Volume 9.6 fL (9.4-12.4); Platelet Count 338 K/mcL (140-400); Red Blood Count 3.55 M/mcL (4.19-5.50); Red Cell Distribution Width 13.3 % (11.5-14.5); White Blood Count 11.9 K/mcL (4.3-11.1)
[2021-01-10 09:32] LABS: BUN/Creatinine Ratio 22 (6-26); Blood Urea Nitrogen 28 mg/dL (8-23); Calcium 8.2 mg/dL (8.6-10.3); Carbon Dioxide 27 mEq/L (23-29); Chloride 104 mEq/L (98-107); Glucose 177 mg/dL (70-105); Magnesium 1.4 mg/dL (1.6-2.6); Osmolality,Calculated 294 (280-300); Potassium 4.2 mEq/L (3.5-5.1); Sodium 137 mEq/L (136-145); eGFR For African Americans > 60 (> 60); eGFR For Non-African Americans 54 (> 60)
[2021-01-10 09:52] LABS: Lymphocytes # 1.7 K/mcL (0.6-4.6); Monocytes # 0.5 K/mcL (0.0-1.3); Neutrophils # 9.8 K/mcL (1.6-8.9); Platelet Estimate Normal (Normal)
[2021-01-10] MEDS: 0.9 % Sodium Chloride 1,000 ML IVC SCH (15:43)
[2021-01-10] MEDS ORDERED: Famotidine 20 MG TABLET PO SCH (21:00)
[2021-01-10] MEDS ORDERED: Gabapentin 300 MG CAPSULE PO SCH (21:00)
[2021-01-10] MEDS ORDERED: Venlafaxine XR (24 HR) 75 MG CAP.ER.24H PO SCH (21:00)
[2021-01-11] MEDS: Insulin LISPRO 300 UNITS/3 ML VIAL SUBQ SCH ×5 (01:37→20:53)
[2021-01-11 05:33] LABS: Basophils # 0.1 K/mcL (0.0-0.2); Basophils % 0.4 %; Eosinophils # 0.1 K/mcL (0.0-0.6); Eosinophils % 1.1 %; Hematocrit 34.3 % (37.5-50.1); Hemoglobin 11.4 g/dL (12.9-16.9); Immature Granulocytes % 0.5 % (0-4); Lymphocytes % 8.9 %; Mean Corpuscular HGB Conc 33.2 g/dL (31.6-35.5); Mean Corpuscular Hemoglobin 32.2 pg (28.0-33.3); Mean Corpuscular Volume 96.9 fL (83.0-100.0); Mean Platelet Volume 9.4 fL (9.4-12.4); Monocytes # 0.8 K/mcL (0.0-1.3); Monocytes % 6.5 %; Neutrophils # 9.7 K/mcL (1.6-8.9); Platelet Count 318 K/mcL (140-400); Red Blood Count 3.54 M/mcL (4.19-5.50); Red Cell Distribution Width 13.2 % (11.5-14.5); Segmented Neutrophils % 82.6 %; White Blood Count 11.7 K/mcL (4.3-11.1)
[2021-01-11] MEDS: Piperacillin/Tazobactam 3.375 GM in 0.9 % Sodium Chloride Mini Bag 100 ML IVPB SCH ×3 (05:33→22:41)
[2021-01-11 05:46] LABS: INR 1.6; Prothrombin Time 18.2 Seconds (9.4-12.1)
[2021-01-11 05:50] LABS: BUN/Creatinine Ratio 22 (6-26); Blood Urea Nitrogen 23 mg/dL (8-23); Calcium 8.1 mg/dL (8.6-10.3); Carbon Dioxide 25 mEq/L (23-29); Chloride 104 mEq/L (98-107); Glucose 165 mg/dL (70-105); Magnesium 1.6 mg/dL (1.6-2.6); Osmolality,Calculated 293 (280-300); Potassium 3.7 mEq/L (3.5-5.1); Sodium 138 mEq/L (136-145); eGFR For African Americans > 60 (> 60); eGFR For Non-African Americans > 60 (> 60)
[2021-01-11] MEDS ORDERED: *HR* HYDROmorphone PF 0.5 MG/0.5 ML SYRINGE IVP PRN (07:13)
[2021-01-11] MEDS ORDERED: *HR* FentaNYL (PF) 100 MCG/2 ML VIAL IVP PRN (07:13)
[2021-01-11] MEDS ORDERED: Lidocaine -MPF 2% 5 ML VIAL ONE (07:20)
[2021-01-11] MEDS ORDERED: Ondansetron 4 MG/2 ML VIAL ONE (07:20)
[2021-01-11] MEDS ORDERED: Lidocaine -MPF 4% 5 ML AMPUL ONE (07:20)
[2021-01-11] MEDS ORDERED: *HR* Rocuronium Bromide 50 MG/5 ML VIAL ONE ×2 (07:20→11:20)
[2021-01-11] MEDS ORDERED: *HR* Succinylcholine 200 MG/10 ML VIAL IVP ONE (07:20)
[2021-01-11] MEDS ORDERED: *HR* Propofol 200 MG/20 ML VIAL IVP ONE (07:20)
[2021-01-11] MEDS ORDERED: Acetaminophen IV 1,000 MG/100 ML BAG IVPB ONE (07:37)
[2021-01-11] MEDS ORDERED: CefOXitin 1,000 MG VIAL ONE (07:49)
[2021-01-11] MEDS ORDERED: EPHEDrine 50 MG/ML VIAL ONE (08:48)
[2021-01-11] MEDS ORDERED: Aspirin Enteric Coated 81 MG Tablet PO SCH (09:00)
[2021-01-11] MEDS ORDERED: Cholecalciferol (D-3) 1,000 UNIT (25MCG) TABLET PO SCH (09:00)
[2021-01-11] MEDS ORDERED: Multivit/Ca/Min/Fe/FA 1 TAB TABLET PO SCH (09:00)
[2021-01-11] MEDS ORDERED: *HR* FentaNYL (PF) 100 MCG/2 ML VIAL ONE (09:19)
[2021-01-11] MEDS ORDERED: Sugammadex Sodium 200 MG/2 ML VIAL IV ONE (09:45)
[2021-01-11] MEDS ORDERED: *HR* HYDROMORPHONE 2 MG/ML VIAL ONE (09:57)
[2021-01-11] MEDS ORDERED: 0.9 % Sodium Chloride 1,000 ML IVC SCH (11:02)
[2021-01-11] MEDS ORDERED: D5% in Water 1,000 ML IVC PRN ×2 (11:02→12:47)
[2021-01-11] MEDS ORDERED: *HR* Dextrose 50 % in Water (Syg) 50 ML SYRINGE IVP PRN ×2 (11:02→12:47)
[2021-01-11] MEDS ORDERED: Dextrose Gel 15 GM/37.5 ML TUBE PO PRN ×4 (11:02→12:47)
[2021-01-11] MEDS ORDERED: Morphine Sulfate 2 MG/ML SYRINGE IVP PRN (11:02)
[2021-01-11] MEDS ORDERED: Naloxone 0.4 MG/ML INJ IVP PRN (11:02)
[2021-01-11] MEDS ORDERED: Insulin LISPRO 300 UNITS/3 ML VIAL SUBQ SCH (12:00)
[2021-01-11] MEDS: Gabapentin 300 MG CAPSULE PO SCH ×2 (14:48→20:52)
[2021-01-11] MEDS: Famotidine 20 MG TABLET PO SCH (20:53)
[2021-01-11] MEDS: 0.9 % Sodium Chloride 1,000 ML IVC SCH (23:29)
[2021-01-12 03:44] LABS: Basophils % 0.3 %; Eosinophils % 0.2 %; Hematocrit 36.1 % (37.5-50.1); Hemoglobin 11.6 g/dL (12.9-16.9); Immature Granulocytes % 0.8 % (0-4); Lymphocytes # 0.9 K/mcL (0.6-4.6); Lymphocytes % 8.7 %; Mean Corpuscular HGB Conc 32.1 g/dL (31.6-35.5); Mean Corpuscular Hemoglobin 31.4 pg (28.0-33.3); Mean Corpuscular Volume 97.6 fL (83.0-100.0); Mean Platelet Volume 9.9 fL (9.4-12.4); Monocytes % 10.1 %; Neutrophils # 7.9 K/mcL (1.6-8.9); Platelet Count 360 K/mcL (140-400); Red Cell Distribution Width 13.2 % (11.5-14.5); Segmented Neutrophils % 79.9 %; White Blood Count 9.9 K/mcL (4.3-11.1)
[2021-01-12 03:56] LABS: INR 1.4; Prothrombin Time 15.3 Seconds (9.4-12.1)
[2021-01-12 04:03] LABS: BUN/Creatinine Ratio 18 (6-26); Blood Urea Nitrogen 18 mg/dL (8-23); Calcium 8.1 mg/dL (8.6-10.3); Carbon Dioxide 28 mEq/L (23-29); Chloride 103 mEq/L (98-107); Glucose 182 mg/dL (70-105); Magnesium 1.7 mg/dL (1.6-2.6); Osmolality,Calculated 297 (280-300); Potassium 3.7 mEq/L (3.5-5.1); Sodium 140 mEq/L (136-145); eGFR For African Americans > 60 (> 60); eGFR For Non-African Americans > 60 (> 60)
[2021-01-12] MEDS: Piperacillin/Tazobactam 3.375 GM in 0.9 % Sodium Chloride Mini Bag 100 ML IVPB SCH ×3 (05:43→21:17)
[2021-01-12] MEDS: Aspirin Enteric Coated 81 MG Tablet PO SCH (07:34)
[2021-01-12] MEDS: Cholecalciferol (D-3) 1,000 UNIT (25MCG) TABLET PO SCH (07:34)
[2021-01-12] MEDS: Gabapentin 300 MG CAPSULE PO SCH ×3 (07:34→21:16)
[2021-01-12] MEDS: Insulin LISPRO 300 UNITS/3 ML VIAL SUBQ SCH ×4 (07:35→20:21)
[2021-01-12] MEDS: Famotidine 20 MG TABLET PO SCH ×2 (07:35→21:17)
[2021-01-12] MEDS ORDERED: Morphine Sulfate 2 MG/ML SYRINGE IVP PRN (13:29)
[2021-01-12] MEDS ORDERED: Simethicone 80 MG TAB.CHEW PO PRN (18:27)
[2021-01-12] MEDS: Venlafaxine XR (24 HR) 75 MG CAP.ER.24H PO SCH (21:16)
[2021-01-13] MEDS ORDERED: Ondansetron 4 MG/2 ML VIAL IVP PRN (00:58)
[2021-01-13] MEDS ORDERED: Prochlorperazine 10 MG/2 ML VIAL IVP PRN (03:28)
[2021-01-13] MEDS ORDERED: Acetaminophen IV 1,000 MG/100 ML BAG IVPB ONE (03:43)
[2021-01-13] MEDS: Piperacillin/Tazobactam 3.375 GM in 0.9 % Sodium Chloride Mini Bag 100 ML IVPB SCH ×3 (05:52→21:18)
[2021-01-13] MEDS: Insulin LISPRO 300 UNITS/3 ML VIAL SUBQ SCH ×3 (05:53→18:01)
[2021-01-13 06:42] LABS: Basophils # 0.1 K/mcL (0.0-0.2); Basophils % 0.5 %; Eosinophils % 0.1 %; Hematocrit 37.8 % (37.5-50.1); Hemoglobin 12.3 g/dL (12.9-16.9); Immature Granulocytes % 1.1 % (0-4); Lymphocytes # 0.9 K/mcL (0.6-4.6); Lymphocytes % 5.8 %; Mean Corpuscular HGB Conc 32.5 g/dL (31.6-35.5); Mean Corpuscular Hemoglobin 31.5 pg (28.0-33.3); Mean Corpuscular Volume 96.9 fL (83.0-100.0); Mean Platelet Volume 9.6 fL (9.4-12.4); Monocytes # 1.4 K/mcL (0.0-1.3); Monocytes % 9.4 %; Neutrophils # 12.4 K/mcL (1.6-8.9); Nucleated Red Blood Cells 0.1 /100 WBC (0); Platelet Count 429 K/mcL (140-400); Red Cell Distribution Width 13.3 % (11.5-14.5); Segmented Neutrophils % 83.1 %
[2021-01-13 06:43] LABS: White Blood Count 14.9 K/mcL (4.3-11.1)
[2021-01-13 06:59] LABS: INR 1.5; Prothrombin Time 16.9 Seconds (9.4-12.1)
[2021-01-13 07:18] LABS: BUN/Creatinine Ratio 23 (6-26); Blood Urea Nitrogen 22 mg/dL (8-23); Calcium 8.3 mg/dL (8.6-10.3); Carbon Dioxide 26 mEq/L (23-29); Chloride 104 mEq/L (98-107); Glucose 223 mg/dL (70-105); Magnesium 1.9 mg/dL (1.6-2.6); Osmolality,Calculated 300 (280-300); Potassium 3.6 mEq/L (3.5-5.1); Sodium 140 mEq/L (136-145); eGFR For African Americans > 60 (> 60); eGFR For Non-African Americans > 60 (> 60)
[2021-01-13] MEDS: Venlafaxine XR (24 HR) 75 MG CAP.ER.24H PO SCH ×2 (07:33→21:17)
[2021-01-13] MEDS: Cholecalciferol (D-3) 1,000 UNIT (25MCG) TABLET PO SCH (07:33)
[2021-01-13] MEDS: Gabapentin 300 MG CAPSULE PO SCH ×3 (07:34→21:18)
[2021-01-13] MEDS: Aspirin Enteric Coated 81 MG Tablet PO SCH (07:34)
[2021-01-13] MEDS: Famotidine 20 MG TABLET PO SCH ×2 (07:34→21:18)
[2021-01-13] MEDS: *HR* Rivaroxaban 10 MG TABLET PO SCH (08:20)
[2021-01-13 12:56] LABS: Estimated Average Glucose 154 mg/dl
[2021-01-14 02:57] LABS: Basophils # 0.1 K/mcL (0.0-0.2); Basophils % 0.6 %; Eosinophils # 0.8 K/mcL (0.0-0.6); Hematocrit 34.2 % (37.5-50.1); Hemoglobin 11.7 g/dL (12.9-16.9); Immature Granulocytes % 2.7 % (0-4); Lymphocytes # 1.6 K/mcL (0.6-4.6); Lymphocytes % 12.4 %; Mean Corpuscular HGB Conc 34.2 g/dL (31.6-35.5); Mean Corpuscular Hemoglobin 32.6 pg (28.0-33.3); Mean Corpuscular Volume 95.3 fL (83.0-100.0); Mean Platelet Volume 9.4 fL (9.4-12.4); Monocytes # 1.2 K/mcL (0.0-1.3); Monocytes % 9.4 %; Nucleated Red Blood Cells 0.2 /100 WBC (0); Platelet Count 451 K/mcL (140-400); Red Blood Count 3.59 M/mcL (4.19-5.50); Red Cell Distribution Width 13.1 % (11.5-14.5); Segmented Neutrophils % 68.9 %
[2021-01-14 02:59] LABS: Prothrombin Time 21.8 Seconds (9.4-12.1)
[2021-01-14 03:02] LABS: Blood Urea Nitrogen 18 mg/dL (8-23); Calcium 7.9 mg/dL (8.6-10.3); Carbon Dioxide 28 mEq/L (23-29); Chloride 100 mEq/L (98-107); Glucose 176 mg/dL (70-105); Magnesium 1.8 mg/dL (1.6-2.6); Osmolality,Calculated 290 (280-300); Potassium 3.4 mEq/L (3.5-5.1); Sodium 137 mEq/L (136-145)
[2021-01-14 03:42] LABS: BUN/Creatinine Ratio 21 (6-26); eGFR For African Americans > 60 (> 60); eGFR For Non-African Americans > 60 (> 60)
[2021-01-14] MEDS: Piperacillin/Tazobactam 3.375 GM in 0.9 % Sodium Chloride Mini Bag 100 ML IVPB SCH ×3 (05:36→21:20)
[2021-01-14] MEDS: *HR* Rivaroxaban 10 MG TABLET PO SCH (08:15)
[2021-01-14] MEDS: Gabapentin 300 MG CAPSULE PO SCH ×3 (08:15→21:17)
[2021-01-14] MEDS: Cholecalciferol (D-3) 1,000 UNIT (25MCG) TABLET PO SCH (08:15)
[2021-01-14] MEDS: Venlafaxine XR (24 HR) 75 MG CAP.ER.24H PO SCH ×2 (08:15→21:19)
[2021-01-14] MEDS: Aspirin Enteric Coated 81 MG Tablet PO SCH (08:15)
[2021-01-14] MEDS: Famotidine 20 MG TABLET PO SCH ×2 (08:16→21:18)
[2021-01-14] MEDS: Insulin LISPRO 300 UNITS/3 ML VIAL SUBQ SCH ×4 (08:16→20:24)
[2021-01-14] MEDS: Fluticasone Propionate Nasal 50 MCG/SPRAY BOTTLE NS SCH (14:26)
[2021-01-14 20:34] LABS: FACV Specimen WHOLE BLOOD
[2021-01-15] MEDS: Piperacillin/Tazobactam 3.375 GM in 0.9 % Sodium Chloride Mini Bag 100 ML IVPB SCH ×3 (05:58→21:55)
[2021-01-15 06:59] LABS: Fac V Leiden R506Q Mut Result NEGATIVE
[2021-01-15] MEDS: Insulin LISPRO 300 UNITS/3 ML VIAL SUBQ SCH ×4 (11:14→21:42)
[2021-01-15] MEDS: Gabapentin 300 MG CAPSULE PO SCH ×3 (11:15→21:55)
[2021-01-15] MEDS: *HR* Rivaroxaban 10 MG TABLET PO SCH (11:15)
[2021-01-15] MEDS: Fluticasone Propionate Nasal 50 MCG/SPRAY BOTTLE NS SCH (11:15)
[2021-01-15] MEDS: Aspirin Enteric Coated 81 MG Tablet PO SCH (11:15)
[2021-01-15] MEDS: Cholecalciferol (D-3) 1,000 UNIT (25MCG) TABLET PO SCH (11:15)
[2021-01-15] MEDS: Famotidine 20 MG TABLET PO SCH ×2 (11:15→21:55)
[2021-01-15] MEDS: Venlafaxine XR (24 HR) 75 MG CAP.ER.24H PO SCH ×2 (11:19→21:55)
[2021-01-15 11:22] LABS: Basophils # 0.1 K/mcL (0.0-0.2); Basophils % 0.6 %; Eosinophils # 0.8 K/mcL (0.0-0.6); Eosinophils % 7.2 %; Hematocrit 34.1 % (37.5-50.1); Hemoglobin 11.2 g/dL (12.9-16.9); Immature Granulocytes % 4.8 % (0-4); Lymphocytes # 1.5 K/mcL (0.6-4.6); Lymphocytes % 14.1 %; Mean Corpuscular HGB Conc 32.8 g/dL (31.6-35.5); Mean Corpuscular Hemoglobin 31.4 pg (28.0-33.3); Mean Corpuscular Volume 95.5 fL (83.0-100.0); Mean Platelet Volume 9.4 fL (9.4-12.4); Monocytes # 1.1 K/mcL (0.0-1.3); Monocytes % 10.1 %; Neutrophils # 6.8 K/mcL (1.6-8.9); Nucleated Red Blood Cells 0.4 /100 WBC (0); Platelet Count 470 K/mcL (140-400); Red Blood Count 3.57 M/mcL (4.19-5.50); Red Cell Distribution Width 13.2 % (11.5-14.5); Segmented Neutrophils % 63.2 %; White Blood Count 10.7 K/mcL (4.3-11.1)
[2021-01-15 11:41] LABS: BUN/Creatinine Ratio 15 (6-26); Blood Urea Nitrogen 13 mg/dL (8-23); Calcium 7.9 mg/dL (8.6-10.3); Carbon Dioxide 29 mEq/L (23-29); Chloride 99 mEq/L (98-107); Glucose 225 mg/dL (70-105); Osmolality,Calculated 287 (280-300); Potassium 3.3 mEq/L (3.5-5.1); Sodium 135 mEq/L (136-145); eGFR For African Americans > 60 (> 60); eGFR For Non-African Americans > 60 (> 60)
[2021-01-15] MEDS ORDERED: Potassium Effervescent 25 MEQ TABLET.EFF PO ONE (14:10)
[2021-01-15 23:34] LABS: APTT (LE Anticoag) 61 sec (32-48); APTT (LE Anticoag) 63 sec (32-48); Diluted Russell Viper Venom 42 sec (33-44); Diluted Russell Viper Venom 44 sec (33-44); LE Coag APTT Mixing 54 sec (32-48); LE Coag APTT Mixing 56 sec (32-48); LE Hexagonal Phospholipid Neut POSITIVE (Negative); PT (LE-Anticoag) 16.7 sec (12.0-15.5); PT (LE-Anticoag) 17.3 sec (12.0-15.5); Thrombin Time 15.1 sec (14.7-19.5); Thrombin Time 15.5 sec (14.7-19.5)
[2021-01-16 01:19] LABS: Basophils # 0.1 K/mcL (0.0-0.2); Basophils % 0.7 %; Eosinophils # 0.7 K/mcL (0.0-0.6); Eosinophils % 5.9 %; Hematocrit 35.7 % (37.5-50.1); Hemoglobin 12.2 g/dL (12.9-16.9); Immature Granulocytes % 4.2 % (0-4); Lymphocytes # 1.8 K/mcL (0.6-4.6); Lymphocytes % 15.3 %; Mean Corpuscular HGB Conc 34.2 g/dL (31.6-35.5); Mean Corpuscular Hemoglobin 32.4 pg (28.0-33.3); Mean Corpuscular Volume 94.7 fL (83.0-100.0); Mean Platelet Volume 9.1 fL (9.4-12.4); Monocytes # 1.2 K/mcL (0.0-1.3); Monocytes % 9.7 %; Neutrophils # 7.7 K/mcL (1.6-8.9); Nucleated Red Blood Cells 0.5 /100 WBC (0); Platelet Count 536 K/mcL (140-400); Red Blood Count 3.77 M/mcL (4.19-5.50); Red Cell Distribution Width 13.2 % (11.5-14.5); Segmented Neutrophils % 64.2 %
[2021-01-16 01:37] LABS: BUN/Creatinine Ratio 13 (6-26); Blood Urea Nitrogen 12 mg/dL (8-23); Calcium 8.3 mg/dL (8.6-10.3); Carbon Dioxide 32 mEq/L (23-29); Chloride 99 mEq/L (98-107); Glucose 153 mg/dL (70-105); Osmolality,Calculated 289 (280-300); Potassium 3.6 mEq/L (3.5-5.1); Sodium 138 mEq/L (136-145); eGFR For African Americans > 60 (> 60); eGFR For Non-African Americans > 60 (> 60)
[2021-01-16 06:35] VITALS: O2SAT 92
[2021-01-16] MEDS: Piperacillin/Tazobactam 3.375 GM in 0.9 % Sodium Chloride Mini Bag 100 ML IVPB SCH ×2 (06:35→15:13)
[2021-01-16] MEDS: Insulin LISPRO 300 UNITS/3 ML VIAL SUBQ SCH ×2 (08:45→12:43)
[2021-01-16] MEDS: Aspirin Enteric Coated 81 MG Tablet PO SCH (08:46)
[2021-01-16] MEDS: Cholecalciferol (D-3) 1,000 UNIT (25MCG) TABLET PO SCH (08:46)
[2021-01-16] MEDS: Fluticasone Propionate Nasal 50 MCG/SPRAY BOTTLE NS SCH (08:46)
[2021-01-16] MEDS: Gabapentin 300 MG CAPSULE PO SCH ×2 (08:47→15:12)
[2021-01-16] MEDS: Famotidine 20 MG TABLET PO SCH (08:47)
[2021-01-16] MEDS: *HR* Rivaroxaban 10 MG TABLET PO SCH (08:47)
[2021-01-16] MEDS: Venlafaxine XR (24 HR) 75 MG CAP.ER.24H PO SCH (08:57)
[2021-01-16 14:33] VITALS: BP 123/75; PULSE 75; TEMP 98.3
== END 2021-01-16 18:09 | disposition home or self-care (01) | DRG 853 ==
LOC: EMEROOARM 17:21 → 3ANU 17:21 → SUATTDRO 20:51 → 3ANU 21:56
PROVIDERS: ADMIT Student in an Organized Health Care Education/Training Program; ATTEND Hospitalist